=== PATIENT | female | born 1970 | race Caucasian/White ===

== ENCOUNTER 2017-11-24 13:14 | Emergency (ER) | payer MEDICAID, SELFPAY ==
[2017-11-24 13:16] VITALS: BP 158/92; PULSE 78; RESP 15; TEMP 35.9; O2SAT 98; BMI 30.4
--- NOTE | 2017-11-24 13:26 | VDLE_ITS ---
Reason For Study: LEG SWELLING RIGHT LEFT CFV is compressible, spontaneous, phasic, GSV is normal. competent and demonstrates normal CFV is compressible, spontaneous, phasic, augmentation. competent, and demonstrates normal Procedure augmentation. Exam performed in department. FV is compressible, spontaneous, phasic, A preliminary report was called and/or faxed competent and demonstrates normal to Dr. Avalos. augmentation. POP V is compressible, spontaneous, phasic, competent and demonstrates normal augmentation. T/P Trunk is compressible. PTV is compressible. LT PerV is compressible. Interpretation Summary There is no evidence of left lower extremity deep vein thrombosis. Left greater saphenous vein appears patent and compressible segmentally. Normal flow patterns right common femoral vein. Ordering Physician: Louie Avalos Performed By: Kassandra Moore RVT
--- NOTE | 2017-11-24 13:50 | ED.VISSUMM ---
- ER Visit Summary Date of Service: 11/24/17 Chief Complaint: Left calf pain History of Present Illness: The patient is a 47 F with history of factor V Leiden deficiency, prior pulmonary embolus and DVT [facility] because of pain posterior left calf. She recently moved from [place], 2 weeks ago. She denies any cardiac or respiratory symptoms. She is presently on no anticoagulant. She denies fever, chills night sweats. She denies nausea or vomiting. There is no history of trauma. Physical Examination: Vital signs are remarkable elevated blood pressure 158/92. She is heavyset with a BMI of 30.4. HEENT exam is unremarkable. Heart is regular without murmur, gallop or rub. S1 and S2 are normal. Lungs are clear to auscultation with good movement of air bilaterally. Abdomen soft nontender. Examination of the left lower extremity reveals swelling of the calf compared to the right side with pain the patient over the distribution deep venous system and slight distention of leg veins. There is no erythema, warmth, induration or fluctuance. There is no lymphangitis. There is no popliteal or inguinal lymphadenopathy. Test Results: Venous duplex study of the left lower extremity and proximal right lower extremity reveals no evidence of DVT or evidence of chronic DVT. Emergency Department Course and Treatment: Since patient's well score is greater than 3 a venous duplex study was ordered. Treatment Plan: Elevation and Tylenol or aspirin for discomfort Disposition: Discharged to home Impression: Atraumatic left calf pain unknown etiology History of PE and DVT History of factor V Leiden deficiency This note was generated with [employer] dictation software. It may contain incorrect words, spelling, and punctuation that were not noted in review of the chart prior to signing ED Disposition - Plan for ED Patient: Disposition: Home or Assisted Living Chief Complaint: Lower Extremity Injury Instructions: ED Acute Pain [facility] Referrals: Care Physician,No Primary [Primary Care Provider] - Additional Instructions: Contact your insurance carrier, [employer] for a referral to primary care physician.
--- NOTE | 2017-11-24 13:54 | ED.DCSUM_ITS ---
- ER Visit Summary Date of Service: 11/24/17 Chief Complaint: Left calf pain History of Present Illness: The patient is a 47 F with history of factor V Leiden deficiency, prior pulmonary embolus and DVT was [facility] because of pain posterior left calf. She recently moved from [place], 2 weeks ago. She denies any cardiac or respiratory symptoms. She is presently on no anticoagulant. She denies fever, chills night sweats. She denies nausea or vomiting. There is no history of trauma. Physical Examination: Vital signs are remarkable elevated blood pressure 158/ 92. She is heavyset with a BMI of 30.4. HEENT exam is unremarkable. Heart is regular without murmur, gallop or rub. S1 and S2 are normal. Lungs are clear to auscultation with good movement of air bilaterally. Abdomen soft nontender. Examination of the left lower extremity reveals swelling of the calf compared to the right side with pain the patient over the distribution deep venous system and slight distention of leg veins. There is no erythema, warmth, induration or fluctuance. There is no lymphangitis. There is no popliteal or inguinal lymphadenopathy. Test Results: Venous duplex study of the left lower extremity and proximal right lower extremity reveals no evidence of DVT or evidence of chronic DVT. Emergency Department Course and Treatment: Since patient's well score is greater than 3 a venous duplex study was ordered. Treatment Plan: Elevation and Tylenol or aspirin for discomfort Disposition: Discharged to home Impression: Atraumatic left calf pain unknown etiology History of PE and DVT History of factor V Leiden deficiency This note was generated with [employer] dictation software. It may contain incorrect words, spelling, and punctuation that were not noted in review of the chart prior to signing ED Disposition - Plan for ED Patient: Disposition: Home or Assisted Living Chief Complaint: Lower Extremity Injury Instructions: ED Acute Pain [facility] Referrals: Care Physician,No Primary [Primary Care Provider] - Additional Instructions: Contact your insurance carrier, [employer] for a referral to primary care physician.
== END 2017-11-24 14:17 | disposition home or self-care (01) ==
LOC: ED 14:09
PROVIDERS: Emergency Provider Emergency Medicine
DX: M79.662 Pain in left lower leg (principal); D68.2 Hereditary deficiency of other clotting factors; Z86.718 Personal history of other venous thrombosis and embolism; Z86.711 Personal history of pulmonary embolism; E66.9 Obesity, unspecified; Z68.30 Body mass index [BMI] 30.0-30.9, adult; Z86.73 Personal history of transient ischemic attack (TIA), and cerebral infarction without residual deficits; Z85.038 Personal history of other malignant neoplasm of large intestine; Z72.0 Tobacco use; Z79.82 Long term (current) use of aspirin
CPT/HCPCS: 93971; 99282

== ENCOUNTER → 2017-12-30 10:01 | Outpatient (CLI) | payer MEDICAID, SELFPAY ==
[2017-12-30 12:21] LABS: International Normalized Ratio 0.9; Prothrombin Time (Protime)PT. 12.4 SECONDS (11.7-14.9)
[2017-12-30 12:22] LABS: Partial Thromboplast Time 28.2 Seconds (24.1-36.2)
[2017-12-30 12:40] LABS: Absolute Lymphocyte Count 1.48 X10^3/ul (0.83-4.51); Absolute Neutrophil Count 5.2 X10^3/uL (2.0-7.7); Basophil# 0.02 X10^3/uL; Basophil% 0.3 % (0-1); Eosinophil# 0.12 X10^3/uL; Eosinophils% 1.7 % (0-5); Hematocrit 43.5 % (37-47); Hemoglobin 14.5 g/dl (12.0-15.0); Lymphocyte # 1.48 X10^3/ul (4.0); Lymphocyte % 20.4 % (19-41); Mean Corp Hgb Conc 33.3 g/gl (32-36); Mean Corpuscular Hgb 29.1 pg (27.0-32.0); Mean Corpuscular Volume 87.3 fL (81-99); Mean Platelet Vol. 11.2 fl (6.2-12.0); Monocyte# 0.47 X10^3/uL; Monocyte% 6.5 % (0-10); Neutrophil # 5.17 X10^3/uL (2.7-7.7); Platelet Count 218 K/mm3 (150-450); RBC Distribution Width CV 13.7 % (11.6-14.6); RBC Distribution Width SD 43.6 fl (35.1-43.9); Red Blood Count 4.98 M/mm3 (4.2-5.4); White Blood Count 7.3 K/mm3 (4.4-11.0)
[2017-12-30 12:41] LABS: POSITIVE COUNT NO; POSITIVE DIFFERENTIAL NO; POSITIVE MORPHOLOGY NO
[2017-12-30 12:43] LABS: ALB/GLOB Ratio 1.1 RATIO (0.9-2.4); AST(SGOT) 17 U/L (15-37); Alanine Aminotransfer ALT/SGPT 26 U/L (13-56); Albumin, Serum 3.8 g/dL (3.2-5.0); Alkaline Phosphatase 105 U/L (45-117); Anion Gap 9 (5-15); BUN 13 mg/dL (7-18); BUN/Creat Ratio 16.2 RATIO (10-20); Chloride 112 mmol/L (98-107); EST Glomerular Filtration Rate 81 mL/min (>60); Est Glom Filt Rate - Afr Amer 97 mL/min (>60); Globulin 3.5 g/dL (2.2-4.2); Glucose 91 mg/dL (74-106); Potassium 3.8 mmol/L (3.5-5.1); Protein, Total 7.3 g/dL (6.4-8.2); Sodium Level 143 mmol/L (136-145); Thyroid Stim Hormone (TSH) 1.22 uIU/mL (0.358-3.74)
[2018-01-01 11:46] LABS: Carcinoembryonic Antigen 1.1 ng/mL (0.0-4.7)
== END ==
PROVIDERS: Family Provider Family Medicine; PCP Family Medicine; Visit Provider Family Medicine
DX: C18.9 Malignant neoplasm of colon, unspecified (principal); R00.2 Palpitations; D68.51 Activated protein C resistance
CPT/HCPCS: 36415; 80053; 82378; 84443; 85025; 85610; 85730

== ENCOUNTER → 2018-01-20 13:45 | Outpatient (CLI) | payer MEDICAID, SELFPAY ==
--- NOTE | 2018-01-20 13:47 | CT_ITS ---
STUDY: CT ABDOMEN AND PELVIS WITHOUT CONTRAST REASON FOR EXAM: Female, 47 years old. Right mid abdominal pain. Hematuria. History of prior colectomy secondary to stage IV colon cancer. RADIATION DOSAGE (If Supplied By Facility): CTDIvol = ( 19.10 ) mGy, DLP = ( 968.91 ) mGycm TECHNIQUE: Transaxial images were obtained from the dome of the diaphragm to the symphysis pubis without oral contrast, and without intravenous contrast. Sagittal and coronal images were reconstructed. Individualized dose optimization techniques were used for this CT. COMPARISON: None. FINDINGS: The visualized lung bases are unremarkable. The visualized portions of the heart are within normal limits. Normal liver. The patient is status post cholecystectomy. Normal spleen. Normal pancreas. Normal bilateral adrenal glands. Normal right kidney. Normal left kidney. There is a small hiatal hernia. Normal small intestine. Normal colon. The appendix is visualized and appears normal. Normal abdominal aorta. Normal inferior vena cava. Normal retroperitoneum. Normal urinary bladder. There is absence of the uterus consistent with a prior hysterectomy. Normal abdominal wall. There are mild degenerative changes of the visualized lumbar spine. CT/Abdomen/Pelvis without Cont IMPRESSION: No acute abnormality is seen. Electronically Signed: Delmer Miller MD at 15:43 EDT Tel [phone], Service support ,
== END ==
PROVIDERS: Family Provider Family Medicine; PCP Family Medicine; Visit Provider Family Medicine
DX: R31.9 Hematuria, unspecified (principal)
CPT/HCPCS: 74176

== ENCOUNTER → 2018-08-14 13:42 | Outpatient (CLI) | payer MEDICAID, SELFPAY ==
[2018-08-14 16:05] LABS: Absolute Lymphocyte Count 1.72 X10^3/ul (0.83-4.51); Absolute Neutrophil Count 6.8 X10^3/uL (2.0-7.7); Basophil# 0.03 X10^3/uL; Basophil% 0.3 % (0-1); Eosinophil# 0.11 X10^3/uL; Eosinophils% 1.2 % (0-5); Hematocrit 43.5 % (37-47); Hemoglobin 14.6 g/dl (12.0-15.0); Lymphocyte # 1.72 X10^3/ul (4.0); Lymphocyte % 18.7 % (19-41); Mean Corp Hgb Conc 33.6 g/gl (32-36); Mean Corpuscular Hgb 29.6 pg (27.0-32.0); Mean Corpuscular Volume 88.1 fL (81-99); Mean Platelet Vol. 10.8 fl (6.2-12.0); Monocyte# 0.57 X10^3/uL; Monocyte% 6.2 % (0-10); Neutrophil # 6.75 X10^3/uL (2.7-7.7); Neutrophil % 73.5 % (47-70); Platelet Count 237 K/mm3 (150-450); RBC Distribution Width CV 13.4 % (11.6-14.6); Red Blood Count 4.94 M/mm3 (4.2-5.4); White Blood Count 9.2 K/mm3 (4.4-11.0)
[2018-08-14 16:08] LABS: POSITIVE COUNT NO; POSITIVE DIFFERENTIAL NO; POSITIVE MORPHOLOGY NO
[2018-08-14 16:15] LABS: ALB/GLOB Ratio 1.1 RATIO (0.9-2.4); AST(SGOT) 22 U/L (15-37); Alanine Aminotransfer ALT/SGPT 26 U/L (13-56); Albumin, Serum 3.7 g/dL (3.2-5.0); Alkaline Phosphatase 109 U/L (45-117); Anion Gap 10 (5-15); BUN 15 mg/dL (7-18); BUN/Creat Ratio 17.5 RATIO (10-20); CRP 4.11 mg/L (0.0-3.0); Calcium,Total 8.6 mg/dL (8.5-10.1); Chloride 108 mmol/L (98-107); Creatinine, Serum 0.86 mg/dL (0.55-1.02); EST Glomerular Filtration Rate 75 mL/min (>60); Est Glom Filt Rate - Afr Amer 90 mL/min (>60); Globulin 3.4 g/dL (2.2-4.2); Glucose 95 mg/dL (74-106); Potassium 3.7 mmol/L (3.5-5.1); Protein, Total 7.1 g/dL (6.4-8.2); Sodium Level 143 mmol/L (136-145)
[2018-08-14 16:21] LABS: Erythrocyte Sedimentation Rate 5 mm/hr (0-30)
[2018-08-16 11:57] LABS: Carcinoembryonic Antigen 0.9 ng/mL (0.0-4.7)
== END ==
PROVIDERS: Family Provider Family Medicine; PCP Family Medicine; Referring Provider Family Medicine; Visit Provider Family Medicine
DX: R51 Headache (principal); R50.9 Fever, unspecified; R20.9 Unspecified disturbances of skin sensation; R07.89 Other chest pain; Z85.038 Personal history of other malignant neoplasm of large intestine
CPT/HCPCS: 36415; 80053; 82378; 85025; 85652; 86140

== ENCOUNTER → 2018-08-31 12:58 | Outpatient (CLI) | payer MEDICAID, SELFPAY ==
--- NOTE | 2018-08-31 13:03 | MRI_ITS ---
STUDY: MRI BRAIN WITH AND WITHOUT CONTRAST REASON FOR EXAM: Female, 48 years old. Headaches and colon cancer TECHNIQUE: Standardized multiplanar fat and water weighted pulse sequences were obtained. 10 ml of Gadavist contrast material was administered intravenously for the contrast portion of the examination. COMPARISON: None. FINDINGS: Normal size of the ventricles and extra-axial spaces for the patient's age. Normal white matter tracts of the supratentorial brain. Normal bilateral basal ganglia. Normal thalami. There is no extra-axial fluid accumulation. Normal flow voids within the major intracranial circulation suggesting patency by spin echo criteria. Normal venous enhancement. There is no enhancing intra-axial or extra-axial abnormality. Normal sella turcica, pituitary gland, infundibular stalk, optic chiasm and hypothalamus. Normal tectal plate and pineal gland. Normal midbrain, maki and medulla. Normal cerebellum. Normal basal cisterns. Normal bilateral temporal bones. Normal bilateral internal auditory canals. No demonstrated orbital abnormality, within the constraints of a routine brain study. Normal visualized paranasal sinuses. Normal calvarium and skull base. Normal visualized soft tissue structures. Normal visualized upper cervical spine. Postcontrast images demonstrate pachymeningeal enhancement which was not noted previously. There is NO abnormal leptomeningeal enhancement. There is NO abnormal intra-axial enhancement. Findings could be due to prior lumbar puncture or intracranial hypotension. Possibility of metastasis considered unlikely but not excluded. Clinical correlation suggested. If indicated, lumbar puncture may be helpful. There is fluid in the RIGHT mastoid air cells suggesting mastoiditis. There are incidental enlarged enhancing LEFT cervical lymph nodes noted on the coronal images. MRI/Brain W/WO Contrast IMPRESSION: There is NO hemorrhage, edema, mass, mass effect or midline shift. There is NO evidence of recent infarct. Postcontrast images demonstrate pachymeningeal enhancement which was not noted previously. There is NO abnormal leptomeningeal enhancement. There is NO abnormal intra-axial enhancement. Findings could be due to prior lumbar puncture or intracranial hypotension. Possibility of metastasis considered unlikely but not excluded. Clinical correlation suggested. If indicated, lumbar puncture may be helpful. There is fluid in the RIGHT mastoid air cells suggesting mastoiditis. There are incidental enlarged enhancing LEFT cervical lymph nodes noted on the coronal images. Electronically Signed: Bola aHnnon MD at 7:48 EST , Service support ,
== END ==
PROVIDERS: Family Provider Family Medicine; PCP Family Medicine; Referring Provider Family Medicine; Visit Provider Family Medicine
DX: R51 Headache (principal); R20.9 Unspecified disturbances of skin sensation; Z85.038 Personal history of other malignant neoplasm of large intestine
CPT/HCPCS: 70553; A9585

== ENCOUNTER → 2018-09-19 08:50 | Outpatient (CLI) | payer MEDICAID, SELFPAY ==
--- NOTE | 2018-09-19 08:53 | BI_ITS ---
MAMMOGRAPHY - BILATERAL SCREENING REASON FOR EXAM: Female, 48 years old. Routine annual screening examination. PERTINENT HISTORY: Grandmother with breast cancer. History of prior left breast biopsy. Patient has a past history of colon carcinoma. TECHNIQUE: Digital bilateral breast ascencion (3D mammographic acquisition) in the CC and MLO projections. 2-D mediolateral oblique (MLO) and craniocaudad (CC) views of both breasts were obtained. CAD: Full Field Digital Mammography with Computer Added Detection was performed. COMPARISON: Comparison is made with prior examination dated February 19, 2013 and August 24, 2012. FINDINGS: Breast Composition: The breasts are heterogeneously dense, which may obscure small masses. There are no dominant masses or suspicious calcifications. A tissue clip marker is seen in the slightly superior retroareolar region of the left breast. No other significant abnormalities are identified. There has been no significant change since the prior study. BI/SCREENING MAMM (CAD), BILAT IMPRESSION: Stable bilateral screening mammogram. Yearly follow-up mammogram recommended. (A) ASSESSMENT CATEGORY: BIRADS Category 1: Negative. A letter regarding these results will be sent to the patient by the facility within 30 days. Approximately 10% of breast cancers are not detected by mammography. A normal mammogram should not delay biopsy of a clinically suspicious abnormality. [id number] Electronically Signed: Delmer Miller MD at 9:09 EST Tel [phone], Service support ,
== END ==
PROVIDERS: Family Provider Family Medicine; PCP Family Medicine; Visit Provider Family Medicine
DX: Z12.31 Encounter for screening mammogram for malignant neoplasm of breast (principal)
CPT/HCPCS: 77063; 77067

== ENCOUNTER → 2019-01-09 | Outpatient (CLI) | payer MEDICAID, SELFPAY ==
--- NOTE | 2019-01-09 15:38 | MRI_ITS ---
STUDY: MRI BRAIN WITH AND WITHOUT CONTRAST REASON FOR EXAM: Female, 48 years old. Leptomeningeal enhancement, headache for 7 months TECHNIQUE: Standardized multiplanar fat and water weighted pulse sequences were obtained. 20 IV Dotarem was administered for the contrast portion of the examination. COMPARISON: 08/31/2018 FINDINGS: Normal size of the ventricles and extra-axial spaces for the patient's age. Normal white matter tracts of the supratentorial brain. Bilateral frontal lobe encephalomalacia. Normal bilateral basal ganglia. Normal thalami. There is no extra-axial fluid accumulation. Normal flow voids within the major intracranial circulation suggesting patency by spin echo criteria. Normal venous enhancement. There is no enhancing intra-axial or extra-axial abnormality. Normal sella turcica, pituitary gland, infundibular stalk, optic chiasm and hypothalamus. Normal tectal plate and pineal gland. Normal midbrain, maki and medulla. Normal cerebellum. Normal basal cisterns. Normal bilateral temporal bones. Normal bilateral internal auditory canals. No demonstrated orbital abnormality, within the constraints of a routine brain study. Normal visualized paranasal sinuses. Right mastoid sinus disease. Normal visualized soft tissue structures. Normal visualized upper cervical spine. MRI/Brain W/WO Contrast IMPRESSION: No abnormal meningeal enhancement is present at this time. No evidence of acute infarct or hemorrhage. Bifrontal encephalomalacia. Electronically Signed: Lei Ayala MD at 18:24 EDT Tel , Service support ,
== END | disposition home or self-care (01) ==
LOC: MRI 15:33
PROVIDERS: Family Provider Family Medicine; PCP Family Medicine; Referring Provider Psychiatry & Neurology Neurology; Visit Provider Psychiatry & Neurology Neurology
DX: G96.19 Other disorders of meninges, not elsewhere classified (principal)
CPT/HCPCS: 70553; A9575

== ENCOUNTER → 2019-04-05 | Outpatient (CLI) | payer MEDICAID, SELFPAY ==
--- NOTE | 2019-04-05 09:47 | VDLE_ITS ---
Reason For Study: pain, hx DVT RIGHT LEFT GSV is normal. CFV is compressible, spontaneous, phasic, CFV is compressible, spontaneous, phasic, competent, and demonstrates normal competent and demonstrates normal augmentation. augmentation. FV is compressible, spontaneous, phasic, competent and demonstrates normal augmentation. POP V is compressible, spontaneous, phasic, competent and demonstrates normal augmentation. T/P Trunk is compressible. PTV is compressible. RT PerV is compressible. Procedure Exam performed in department. The exam was diagnostic. A preliminary report was called and/or faxed to Dr. Pizano. Interpretation Summary Deep veins of the right lower extremity are patent and compressible segmentally. There is no evidence of right lower extremity deep vein thrombosis. Valvular competence appears intact within the proximal deep venous system on the right . The right greater saphenous vein appears patent and compressible segmentally. Ordering Physician: Jerica Fisher Performed By: Evan Bernal RVT
== END | disposition home or self-care (01) ==
LOC: CVS 09:46
PROVIDERS: Family Provider Family Medicine; PCP Family Medicine; Referring Provider Family Medicine; Visit Provider Family Medicine
DX: M79.661 Pain in right lower leg (principal); I82.409 Acute embolism and thrombosis of unspecified deep veins of unspecified lower extremity; F17.210 Nicotine dependence, cigarettes, uncomplicated
CPT/HCPCS: 93971

== ENCOUNTER 2019-08-03 09:30 | Outpatient (RCR) | payer MEDICAID, SELFPAY ==
--- NOTE | 2019-06-25 14:38 | HP.PTEVAL_ITS ---
Patient's Visit Information JADEN ARMSTRONG is a 49 year old F referred to Physical Therapy by Zechariah Ozuna DPM with a diagnosis of R Plantar Fascitis. Date of Evaluation: 06/25/19 Physical Therapist: Malka Vaz DPT - Visit Plan Frequency: 2x /Week Duration: 4 Weeks Plan: Focus on improving WB'ing tolerance, ankle ROM, functional LE strength, balance, and decreasing pain. Ultrasound as needed, progress as tolerated. 06/25/19 HEP Prescribed: Ankle Pumps, Ankle Circles, Ankle ABC's, Gastroc/Soleus Stretch, Towel Scrunches. - Subjective Findings: R foot pain at heel, feels like a board with nails in it, shocks in the leg out of nowhere. Pain hs begun to feel tight and radiates to big toe. Pain started 2 months ago at work, just walking around, increased swelling, had to remove shoe. Saw week later, x-rays - bone spurs in R heel. Was given boot - instructed to wear boot for 2 months - non-compliant with boot, told she was not at last appointment 06/04/19. Pt. reports was fine with her not earing boot as long as she rests & uses ice frequently. Does wear boot in the house or when walking long distances. Describes pain as being stabbing, shooting, and an ache. Increased swilling longer she is on her feet. Radiating/shooting pain up to knee & down to toes. N/T present d/t neuropathy. Does disrupt sleep. Worst: 10+/10 Aggravating Factors: stairs, walking (long distances/uneven), Wb'ing, driving Best: 4/10 Relieving Factors: Rest, elevation, ice self-massaging. 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 2 story home 12 steps. Typical Activites: walking, hiking, rides stationary bike, [place] dance. 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 Stairs: B toe-out, reciprocal, slow & 1 HR use, pain t/o. Gait: B Toe-Out, Antalgic, increase stance time on R, pes planus. HR/TR: WFL but painful - B UE assist. SLS: L - 10 5 seconds before LOB, R - unable d/to pain, does weight shift. ROM: Ankle R Df 5 degrees, PF 25 degrees, Eversion 22 degrees, Inversion 16 degrees. Strength: ANkle DF 4+/5, PF 4-/5 Eversion/Inversion 3+/5 Knee ext 5/5 flex 4/5 Hip 4+/5 Core: fair minus. Flexibility: Gastroc: severe Soleus: severe Hamstring: mod. Palpation: TTP at heel & distal achilles tendon, navicular, t/o top of foot - Goals Goal 1:: Pt. will be I w/ HEP & progression Goal Time Frame: 4-6 Weeks Goal 2:: Pt. will demo 5/5 strength in R ankle Goal Time Frame: 4-6 Weeks Goal 3:: Pt. will demo 35 degrees of plantarflexion Goal Time Frame: 4-6 Weeks Goal 4:: Pt. will demo R SLS for 15 seconds w/ no UE assist Goal Time Frame: 4-6 Weeks Goal 5:: Amb. >300 ft. w/ normalized gait pattern Goal Time Frame: 4-6 Weeks - Rehabilitation Potential Physical Therapy Diagnosis: Presents w/ hypomobility, antalgic gait, impaired ROM/strength, and pain which leads to poor tolerance of work-related acitivities. Rehabilitation Potential: Good - Anticipated Interventions Patient/Client Instruction: Educate patient on: Condition For the Purpose of:: To decrease pain Therapeutic Exercise to Include: Strength training, Endurance training, Balance training, Postural training, Flexibilty training, Gait and locomotor training, Dynamic Lumbar Stabilization For the Purpose of:: To improve muscle performance and motor function TENS: Yes Cryotherapy (ice pack, ice massage): Yes Thermo therapy (hot pack): Yes Ultrasound (thermal/non thermal): Yes For the Purpose of:: To decrease pain Thank you for the opportunity to evaluate your patient. For Medicare and Medicare HMO plans, please review the plan of care and approve it. It will need to be FAXED BACK to us at [phone] for Medicare purposes. For Medicare only, by signing this I certify the plan of care. Please let me know if there are questions or concerns regarding this plan of care. Physician Signature: Date:
--- NOTE | 2019-08-03 09:51 | HP.PTDCSUM ---
HP - PT D/C Summary It has been my pleasure to treat JADEN ARMSTRONG under orders from Zechariah Ozuna DPM, for the diagnosis of R Plantar Fascitis for a total of 7 visit(s). Discharge Date: Please see the following information for a summary of their discharge status. - Subjective Subjective: Patient reports thats he is not much better- the pain is moving a little bit but its now on the lateral aspect of the ankle and down in the heel. Still has shooting pains. Goes back to the MD when she finishes therapy. Today 01/19 it never goes below that. Does put the boot on when she needs it. - Pain R Heel Pain Intensity (Out of 10): 4 L HC Pain Intensity (Out of 10): 0 - Objective Objective/Function: Posture: RS, FH - corrected w/ v.c not maintained. Stairs: B toe-out, reciprocal, slow & 1 HR use, pain t/o. Gait: B Toe-Out, Antalgic, increase stance time on R, pes planus. HR/TR: WFL but painful - B UE assist. SLS: L - 10 5 seconds before LOB, R - unable d/to pain, does weight shift. ROM: Ankle R Df 5 degrees, PF 25 degrees, Eversion 22 degrees, Inversion 16 degrees. Strength: ANkle DF 4+/5, PF 4-/5 Eversion/Inversion 3+/5 Knee ext 5/5 flex 4/5 Hip 4+/5 Core: fair minus. Flexibility: Gastroc: severe Soleus: severe Hamstring: mod. Palpation: TTP at heel & distal achilles tendon, navicular, t/o top of foot. No significant changes from IE - Goals Goal 1:: Pt. will be I w/ HEP & progression Goal Progress: Not Progressing Goal 2:: Pt. will demo 5/5 strength in R ankle Goal Progress: Not Progressing Goal 3:: Pt. will demo 35 degrees of plantarflexion Goal Progress: Not Progressing Goal 4:: Pt. will demo R SLS for 15 seconds w/ no UE assist Goal Progress: Not Progressing Goal 5:: Amb. >300 ft. w/ normalized gait pattern Goal Progress: Not Progressing - Plan Plan: Return to MD for further evaluation - D/C Information If there are questions or concerns regarding this patient's physical therapy, please feel free to call me at [phone]. Thank you for the referral of this patient. Sincerely, VERNELL SahuT
== END 2019-08-03 19:00 | disposition home or self-care (01) ==
LOC: PT 09:30
PROVIDERS: Family Provider Family Medicine; PCP Family Medicine; Referring Provider Podiatrist; Visit Provider Podiatrist
DX: M76.821 Posterior tibial tendinitis, right leg (principal); G57.51 Tarsal tunnel syndrome, right lower limb; M72.2 Plantar fascial fibromatosis; M77.31 Calcaneal spur, right foot; M21.6X9 Other acquired deformities of unspecified foot; M79.671 Pain in right foot
CPT/HCPCS: 97035; 97110; 97161; 97164

== ENCOUNTER → 2019-09-19 09:22 | Outpatient (CLI) | payer MEDICAID, SELFPAY ==
--- NOTE | 2019-09-19 09:30 | MRI_ITS ---
STUDY: MRI RIGHT ANKLE WITHOUT CONTRAST REASON FOR EXAM: Female, 49 years old. Posterior tibial tendinitis, tarsal tunnel syndrome right ankle, rt heel pain, pain entire ankle. TECHNIQUE: Standardized fat and water weighted pulse sequences were obtained in all 3 orthogonal planes. COMPARISON: None. FINDINGS: Mild plantar fascial thickening with acute marrow edema, soft tissue swelling and small plantar spur (sagittal image 12 series 9). No plantar fascial tear. Normal Achilles tendon. Normal muscles of the midfoot/hindfoot. Trace tibiotalar assess subtalar joint effusion. Normal posterior tibialis tendon. Normal flexor digitorum longus tendon. Normal flexor hallucis longus tendon. Normal peroneus longus and brevis tendons. Normal tibialis anterior tendon. Normal extensor hallucis longus tendon. Normal extensor digitorum longus tendons. Normal distal tibiofibular syndesmotic ligamentous complex. Normal lateral ligamentous complex. Normal subtalar ligaments and sinus tarsi. Normal deltoid ligamentous complexes. Normal plantar calcaneonavicular (spring) ligament. Normal tibiotalar articular cartilage. Normal talar dome. Normal subtalar articular cartilage. Normal talonavicular articulation. Normal calcaneocuboid articulation. Normal navicular-cuneiform articulations. MRI/Lower Ext Joint Only (Routine) IMPRESSION: Mild acute plantar fasciitis with small spur Trace tibiotalar/subtalar joint effusion Electronically Signed: Ravindra Garcia DO at 11:24 EST Tel , Service support ,
== END ==
PROVIDERS: Family Provider Family Medicine; PCP Family Medicine; Referring Provider Podiatrist; Visit Provider Podiatrist
DX: M76.821 Posterior tibial tendinitis, right leg (principal); M72.2 Plantar fascial fibromatosis; M79.671 Pain in right foot; M77.31 Calcaneal spur, right foot
CPT/HCPCS: 73721

== ENCOUNTER → 2019-11-29 | Outpatient (CLI) | payer MEDICAID, SELFPAY ==
[2019-11-29 12:35] LABS: Absolute Lymphocyte Count 1.84 X10^3/uL (0.83-4.51); Absolute Neutrophil Count 7.5 X10^3/uL (2.0-7.7); Basophil# 0.06 X10^3/uL; Basophil% 0.6 % (0-1); Eosinophil# 0.09 X10^3/uL; Eosinophils% 0.9 % (0-5); Hematocrit 45.2 % (37-47); Hemoglobin 14.9 g/dL (12.0-15.0); Lymphocyte # 1.84 X10^3/ul (4.0); Lymphocyte % 18.2 % (19-41); Mean Corpuscular Hgb 28.9 pg (27.0-32.0); Mean Corpuscular Volume 87.8 fL (81-99); Monocyte# 0.57 X10^3/uL; Monocyte% 5.6 % (0-10); NRBC Flagged by Analyzer 0 % (0-5); Neutrophil # 7.51 X10^3/uL (2.7-7.7); Neutrophil % 74.4 % (47-70); Platelet Count 239 K/mm3 (150-450); RBC Distribution Width CV 13.3 % (11.6-14.6); Red Blood Count 5.15 M/mm3 (4.2-5.4); White Blood Count 10.1 K/mm3 (4.4-11.0)
[2019-11-29 12:37] LABS: ALB/GLOB Ratio 1.2 RATIO (0.9-2.4); AST(SGOT) 22 U/L (15-37); Alanine Aminotransfer ALT/SGPT 30 U/L (13-56); Albumin, Serum 4.2 g/dL (3.2-5.0); Alkaline Phosphatase 132 U/L (45-117); Anion Gap 6 (5-15); BUN 17 mg/dL (7-18); BUN/Creat Ratio 20.6 RATIO (10-20); Calcium,Total 9.4 mg/dL (8.5-10.1); Chloride 108 mmol/L (98-107); Cholesterol 213 mg/dL (200); Creatinine, Serum 0.83 mg/dL (0.55-1.02); EST Glomerular Filtration Rate 77 mL/min (>60); Est Glom Filt Rate - Afr Amer 93 mL/min (>60); Globulin 3.4 g/dL (2.2-4.2); Glucose 90 mg/dL (74-106); High Density Lipoprotein 47 mg/dL; Potassium 3.8 mmol/L (3.5-5.1); Protein, Total 7.6 g/dL (6.4-8.2); Sodium Level 138 mmol/L (136-145); Triglycerides 295 mg/dL; Very Low Density Lipoprotein 59 mg/dL (5-40)
[2019-11-29 13:06] LABS: Rubella IgG 112.7 IU/mL
[2019-11-30 21:35] LABS: Carcinoembryonic Antigen 1.2 ng/mL (0.0-4.7); Mumps Antibody,IgG < 9.0 AU/mL (Immune >10.9); Rubeola IgG Ab > 300.0 AU/mL (Immune >16.4)
== END | disposition home or self-care (01) ==
LOC: BFHLAB 10:12
PROVIDERS: PCP Family Medicine; Visit Provider Family Medicine
DX: Z00.00 Encounter for general adult medical examination without abnormal findings (principal); D68.51 Activated protein C resistance; C18.9 Malignant neoplasm of colon, unspecified; Z83.3 Family history of diabetes mellitus
CPT/HCPCS: 36415; 80053; 80061; 82378; 85025; 86735; 86762; 86765

== ENCOUNTER → 2019-12-18 | Outpatient (CLI) | payer MEDICAID, SELFPAY ==
--- NOTE | 2019-12-18 10:24 | BI_ITS ---
MAMMOGRAPHY - BILATERAL SCREENING REASON FOR EXAM: Female, 49 years old. Routine annual screening examination. PERTINENT HISTORY: Grandmother with breast cancer. Remote left breast biopsy. TECHNIQUE: Digital bilateral breast alize (3D mammographic acquisition) in the CC and MLO projections. 2-D mediolateral oblique (MLO) and craniocaudad (CC) views of both breasts were obtained. CAD: Full Field Digital Mammography with Computer Added Detection was performed. COMPARISON: Comparison is made with prior examination dated September 19, 2018 FINDINGS: Breast Composition: The breasts are heterogeneously dense, which may obscure small masses. There are no dominant masses or suspicious calcifications. A tissue clip marker is once again seen in the slightly superior retroareolar region of the left breast. No other significant abnormalities are identified. There has been no significant change since the prior study. BI/SCREEN MAMM (CAD) W/ALIZE BILAT IMPRESSION: Stable bilateral screening mammogram. Yearly follow-up mammogram recommended. (A) ASSESSMENT CATEGORY: BIRADS Category 2: Benign. A letter regarding these results will be sent to the patient by the facility within 30 days. Approximately 10% of breast cancers are not detected by mammography. A normal mammogram should not delay biopsy of a clinically suspicious abnormality. [id number] Electronically Signed: Delmer Miller, at 12:46 EDT , Service support ,
--- NOTE | 2019-12-18 10:39 | BD_ITS ---
STUDY: DUAL ENERGY X-RAY ABSORPTIOMETRY / DXA REASON FOR EXAM: Female, 49 years old. CATERING AND EVENTS MANAGER-SURGICAL EARLY AT 35 YRS OLD -- SMOKER -- USES INHALER NEEDED -- HX OF FACTOR V LEIDEN, AND COLON CANCER -- DOES LITTLE EXERCISE -- FAMILY HX OF OSTEO- MOTHER -- NO DARLEEN TECHNIQUE: Bone Mineral Density (BMD) measurements of lumbar spine and bilateral hips were obtained. COMPARISON: None. FINDINGS: Lumbar Spine (L1-L4): g/cm2 (1.207) / T-score (0.2) / Z-score (0.8) Findings are suggestive of normal bone density with a low fracture risk. Left Femur Total: g/cm2 (0.980) / T-score (-0.2) / Z-score (0.3) Left Femoral Neck: g/cm2 (0.932) / T-score (-0.8) / Z-score (0.1) Right Femur Total: g/cm2 (0.961) / T-score (-0.4) / Z-score (0.2) Right Femoral Neck: g/cm2 (0.968) / T-score (-0.5) / Z-score (0.4) BD/Dexa Bone Density Study IMPRESSION: The patient is considered normal as outlined below according to World Gabriel Organization (WHO) criteria with a low fracture risk. Reference Information: The T-score is the number of standard deviations above or below the standard which is normal for young adults at their peak bone mineral density. The World Health Organization (WHO) interprets the T-scores as follows: Above -1 Normal bone density Between -1 and -2.5 Osteopenia Equal to / or below -2.5 Osteoporosis As a practical clinical guideline, osteopenia may be graded as follows: Mild -1 through -1.5 Moderate -1.6 through -2.0 Severe -2.1 through -2.4 The Z-score is the number of standard deviations above or below age-matched controls. A Z-score of less than -1.5 would be considered abnormal. References: 1. NIH Osteoporosis and Related Bone Diseases http://www.osteo.org 2. International Society for Clinical Densitometry http://www.iscd.org 3. National Osteoporosis Foundation http://www.nof.org Electronically Signed: Delmer Miller, at 13:14 EDT , Service support ,
== END | disposition home or self-care (01) ==
LOC: OPBD 10:23
PROVIDERS: PCP Family Medicine; Referring Provider Family Medicine; Visit Provider Family Medicine
DX: Z78.0 Asymptomatic menopausal state (principal); Z12.31 Encounter for screening mammogram for malignant neoplasm of breast; Z13.820 Encounter for screening for osteoporosis
CPT/HCPCS: 77063; 77067; 77080

== ENCOUNTER → 2020-12-02 11:53 | Outpatient (CLI) | payer MEDICAID, SELFPAY ==
[2020-12-02 15:12] LABS: Absolute Lymphocyte Count 1.55 X10^3/uL (0.83-4.51); Basophil# 0.04 X10^3/uL; Basophil% 0.6 % (0-1); Eosinophil# 0.09 X10^3/uL; Eosinophils% 1.3 % (0-5); Hematocrit 43.3 % (37-47); Hemoglobin 14.1 g/dL (12.0-15.0); Lymphocyte # 1.55 X10^3/ul (4.0); Lymphocyte % 21.6 % (19-41); Mean Corp Hgb Conc 32.6 g/dL (32-36); Mean Corpuscular Hgb 29.3 pg (27.0-32.0); Mean Corpuscular Volume 89.8 fL (81-99); Mean Platelet Vol. 10.8 fl (6.2-12.0); Monocyte# 0.53 X10^3/uL; Monocyte% 7.4 % (0-10); NRBC Flagged by Analyzer 0 % (0-5); Neutrophil # 4.96 X10^3/uL (2.7-7.7); Platelet Count 235 K/mm3 (150-450); RBC Distribution Width CV 13.1 % (11.6-14.6); RBC Distribution Width SD 43.4 fl (35.1-43.9); Red Blood Count 4.82 M/mm3 (4.2-5.4); White Blood Count 7.2 K/mm3 (4.4-11.0)
[2020-12-02 15:27] LABS: ALB/GLOB Ratio 1.3 RATIO (0.9-2.4); AST(SGOT) 22 U/L (15-37); Alanine Aminotransfer ALT/SGPT 33 U/L (13-56); Albumin, Serum 4.1 g/dL (3.2-5.0); Alkaline Phosphatase 102 U/L (45-117); Anion Gap 7 (5-15); BUN 17 mg/dL (7-18); BUN/Creat Ratio 22.8 RATIO (10-20); Calcium,Total 9.2 mg/dL (8.5-10.1); Chloride 109 mmol/L (98-107); Creatinine, Serum 0.74 mg/dL (0.55-1.02); EST Glomerular Filtration Rate 87 mL/min (>60); Est Glom Filt Rate - Afr Amer 105 mL/min (>60); Globulin 3.2 g/dL (2.2-4.2); Glucose 89 mg/dL (74-106); Potassium 3.8 mmol/L (3.5-5.1); Protein, Total 7.3 g/dL (6.4-8.2); Sodium Level 140 mmol/L (136-145)
== END ==
PROVIDERS: PCP Family Medicine; Referring Provider Family Medicine; Visit Provider Family Medicine
DX: Z01.818 Encounter for other preprocedural examination (principal)
CPT/HCPCS: 36415; 80053; 85025

== ENCOUNTER 2020-12-03 16:23 | Outpatient (RCR) | payer MEDICAID, SELFPAY ==
--- NOTE | 2020-12-03 19:13 | HP.PTEVAL_ITS ---
Patient's Visit Information JADEN ARMSTRONG is a 50 year old F referred to Physical Therapy by Dr. Taryn Watson DPM with a diagnosis of L plantar fascitis, extensor hallicus longus tendonitis, arthritis of 1 MTP. Date of Evaluation: 12/03/20 Physical Therapist: Reginald Mueller DPT - Visit Plan Frequency: 1-2x /Week Duration: 4 Weeks Plan: Pt. is very painful and stiff through her 1st MTPJ not allowing forefoot rocker moment with gait. This altered gait pattern appears to be causing a extensor foot tendonitis. She did have an MRI foot at her posterior foot and her previous plantar fascitis. I have a larger consern of her 1st MTPJ and possible MRI of this joint and extensor tendons might be warranted at this point in time. I would still suggest that she work on her 1st MTPJ ROM especially into extension allowing for correction of her gait pattern. - Subjective Pt. is here today for her initial evaluation with diagnosis of L plantar fascitis, extensor hallicus longus tendonitis, and arthritis of 1st MTPS. Pt. has been having pain for ~2 years, no mech of injury. She has been through PT before without success. She has tried cast boot, resting slints, CAM boot, ice/heat without success. Pt. has increased difficulty with walking, stairs, standing, and having pain at night that wakes her up. Pt. reports pain at 1st MET head and pain that starts on top on her foot that radiates up her ankle. She was typically very active including hiking, outdoor sports, and gym work outs, but is not able to tolerate any of these activities any more. Pt. met with her doctor who is concerned about further issues with her foot. She did have an MRI of the posterior aspect of her foot looking at her plantar fasciatis and heel spurs in September of 2019. She has not developed increased pain her 1st MET head and dorsal foot pain in conjuction with her plantar fascitis. Her physician was hopeful to have an MRI to rule out other associated pathologies as well. - Pain R 1st MTPJ Pain Intensity (Out of 10): 6 Pain Intensity Range: 4, 10 Dorsal aspect of foot along extensor tendon group Pain Intensity (Out of 10): 3 Pain Intensity Range: 2, 6 R longitudinal arch Pain Intensity (Out of 10): 3 Pain Intensity Range: 2, 8 - Objective POSTURE: Pt. has increased wt. shift to LLE in stance and tends to stand on heel with her R foot with foot everted. She reports she does this to avoid pain in her toe. PALPATION: Pt. has high levels of pain at 1st MTPJ and along hallicus longus tendon. She also has pain long medial longitudinal arch and origin of medial plantar fascia. Mild tenderness along Anterior tibialis tendon at anterior ankle. NEURO: Pt. has normal sensation throughout BLEs. Pt. has normal DTR of BLEs. ROM: Pt. has lack of ROM throughout L ankle. AROM: DF: 5deg, PF: 54deg, INV 8deg, EVR 6deg. PROM: DF 8deg pain, PF 55deg, INV 8deg, EVR 6deg. 1st MTPJ AROM: ext- 25deg, flexion 30deg. PROM: ext 35deg, flexion 40deg. Pt. has increased pain with end ranges of extension and flexion of MTPJ. GAIT: Pt. amb ulates with antalgic pattern. Pt. has very limited rocker moment of her forefoot on the R side, increased R foot EVR and avoid any extension of R 1st MTPJ during gait. In attempts to avoid that forefoot rocker moment she tends to keep very flat footed activating Anterior tibialis muscle throughout gait cycle. I belive this is adding to her tendonitis like symptoms of her hallux longus tendon and A nt tib. - Goals Goal 1:: LTG: Pt. to be I with HEP for ankle strengthening, ROM and 1st MTPJ ROM. Goal Time Frame: 2-4 Weeks Goal 2:: STG: Pt. to walk household distances with decreased pain to 2-3/10. Goal Time Frame: 2-4 Weeks Goal 3:: LTG: Pt. to have increased 1st MTPJ extension to 50-70deg allowing for improved forefoot rocker moment and improved gait mechanics. Goal Time Frame: 4-6 Weeks Goal 4:: LTG: pt. to tolerate stair negotation with 1 HR with reciprocal pattern with improved foot mechanics and 0-2/10 pain in her R foot. Goal Time Frame: 4-6 Weeks - Rehabilitation Potential Physical Therapy Diagnosis: Pt. has signs and symptoms consistent with L plantar fascitis, extensor hallicus longus tendonitis, and arthritis of 1st MTPS. Pt. has subsequent hypomombility, weakness, pain and difficulty walking. Rehabilitation Potential: Fair - Anticipated Interventions Patient/Client Instruction: Educate patient on: Condition, Plan of Care, Risk Factors, Benefits of Fitness Program For the Purpose of:: To facilitate caregiver knowledge, To improve self management, To prevent re-injury, To improve ability to perform tasks related to life management, To improve tolerance to ADL's Therapeutic Exercise to Include: Balance training, Body mechanics, Postural training, Flexibilty training, Gait and locomotor training, Passive ROM, Active ROM For the Purpose of:: To decrease pain, To decrease swelling/inflammation, To increase ROM, To improve nutrient delivery to tissue, To increase oxygenation perfusion, To improve muscle performance and motor function, To improve ability to perform ADL's Manual Therapy Techniques to Include: Mobilization, Soft tissue mobilization For the Purpose of:: To decrease pain, To decrease swelling/inflammation, To increase ROM Thank you for the opportunity to evaluate your patient. For Medicare and Medicare HMO plans, please review the plan of care and approve it. It will need to be FAXED BACK to us at [phone] for Medicare purposes. For Medicare only, by signing this I certify the plan of care. Please let me know if there are questions or concerns regarding this plan of care. Physician Signature: Date:
--- NOTE | 2021-02-17 14:03 | HP.PT.NRP ---
JADEN ARMSTRONG was seen in my office for initial evaluation on 12/03/20. The following Plan of Care was established for this patient: Initial Frequency: 1-2x /Week Initial Duration: 4 Weeks Patient/Client Instruction: Educate patient on: Condition, Plan of Care, Risk Factors, Benefits of Fitness Program For the Purpose of:: To facilitate caregiver knowledge, To improve self management, To prevent re-injury, To improve ability to perform tasks related to life management, To improve tolerance to ADL's Therapeutic Exercise to Include: Balance training, Body mechanics, Postural training, Flexibilty training, Gait and locomotor training, Passive ROM, Active ROM For the Purpose of:: To decrease pain, To decrease swelling/inflammation, To increase ROM, To improve nutrient delivery to tissue, To increase oxygenation perfusion, To improve muscle performance and motor function, To improve ability to perform ADL's Manual Therapy Techniques to Include: Mobilization, Soft tissue mobilization For the Purpose of:: To decrease pain, To decrease swelling/inflammation, To increase ROM This patient was last seen in our office 12/03/30. Pertinent comments regarding their Physical therapy will appear below: Pt. was seen for her initial evaluation with plantar fasciatis. Pt. has not been seen in PT since and will be DC from PT at this point in time. At this point I will be discontinuing this patient from physical therapy. I would be happy to see this patient again in the future if found appropriate by the physician. Thank you! VERNELL HeathT
== END 2020-12-03 19:00 | disposition home or self-care (01) ==
LOC: PT 16:23
PROVIDERS: PCP Family Medicine; Referring Provider Podiatrist Foot & Ankle Surgery; Visit Provider Podiatrist Foot & Ankle Surgery
DX: M77.9 Enthesopathy, unspecified (principal)
CPT/HCPCS: 97161

== ENCOUNTER → 2020-12-15 07:58 | Outpatient (CLI) | payer MEDICAID, SELFPAY ==
--- NOTE | 2020-12-15 08:09 | MRI_ITS ---
STUDY: MRI RIGHT MIDFOOT/FOREFOOT REASON FOR EXAM: Female, 50 years old. PLANTAR FASCITIS TECHNIQUE: Standardized fat and water weighted pulse sequences were obtained in all 3 orthogonal planes. COMPARISON: Correlation with ankle MRI dated 09/19/2019. FINDINGS: Normal visualized midfoot/forefoot plantar fascia. Normal flexor and extensor tendons. Normal Lisfranc ligament. No acute fracture, dislocation or osseous destruction. Normal talonavicular joint. Normal navicular cuneiform joints. Normal calcaneal cuboid joint. Normal tarsal metatarsal joints. Moderate first metatarsophalangeal joint arthrosis with reactive bone marrow edema/contusion. Small first metatarsophalangeal joint effusion. Normal second through fifth metatarsophalangeal joints. Visualized portions of the first through fifth digits intact. No acute muscle abnormality. No solid, cystic or lipomatous lesions. MRI/Lower Ext/No Jt/w/o IMPRESSION: Normal visualized midfoot/forefoot plantar fascial Moderate first MTP joint arthrosis with joint effusion Electronically Signed: Ravindra Garcia DO at 10:35 EDT Tel , Service support ,
== END ==
PROVIDERS: PCP Family Medicine; Visit Provider Podiatrist Foot & Ankle Surgery
DX: M19.071 Primary osteoarthritis, right ankle and foot (principal); M72.2 Plantar fascial fibromatosis; S46.111A Strain of muscle, fascia and tendon of long head of biceps, right arm, initial encounter
CPT/HCPCS: 73718

== ENCOUNTER 2020-12-18 12:55 | Day surgery (SDC) | payer MEDICAID, SELFPAY ==
[2020-12-18] VITALS (7 sets, daily range): BP systolic 124–141; BP diastolic 65–84; PULSE 62–76; RESP 14–16; TEMP 36.1–37.1; O2SAT 99–100; BMI 29.4
[2020-12-18] MEDS: Lactated Ringers 1,000 ML 100 ML IV ×2 (13:45→15:32)
--- NOTE | 2020-12-18 14:16 | PCM.OPRPT ---
Problem List (1) Hallux limitus of right foot Status: Chronic (2) Plantar fasciitis of right foot Status: Chronic (3) Post-op pain Status: Acute Report of Operation Date of Procedure: 12/18/20 Pre-Operative Diagnosis: hallux limitus right foot. plantar fasciitis right foot Post-Operative Diagnosis: same Surgery/Procedure Performed:: endoscopic plantar fasciiotomy right foot. cheilectomy right foot Description of Surgical Findings:: hemostasis: ankle tourniquet 250mmHg 42 minutes suture: 3-0, 4-0 vicryl, 4-0 monocryl, 4-0 nylon findings: arthritis 1st MPJ local anesthetic: 20cc 0.25% bupivacaine Materials: Ar[employer] endoscopic plantar fasciotomy kit agricultural technician: Taryn Watson - surgeon: Taryn Watson DPM. 1st Assist: Rochelle Barajas PGY-1 Type of Anesthesia:: General, Local Specimen's removed: none Estimated Blood Loss (mL): minimal Description of Procedure: Indications for procedure: Patient is a 50-year-old female who presents to the office with complaints of pain in her right heel and right big toe joint. Patient states that she has had this heel pain on and off for years. Patient was previously treated at our office by another physician for the heel pain. Patient states pain has not resolved. Patient also has pain to her right big toe joint with limited dorsiflexion range of motion noted with palpable bony spurs. Patient underwent physical therapy without any relief of her symptoms both by previous physician and under my care. Patient had MRI obtained last year by previous physician which demonstrated plantar fasciitis. There is concern on physical exam for extensor hallucis longus tendon pathology along with her limited range of motion to the first metatarsophalangeal joint. A repeat MRI was obtained which did not demonstrate any tendon pathology but did show some joint effusion with spurring noted to 1st MPJ. Discussed with patient need to go to surgery in order to remove the arthritis and bony spurring from the first metatarsophalangeal joint in order to relieve her pain and increase her range of motion. Also discussed due to the chronic nature of her plantar fasciitis endoscopic plantar fasciotomy to her right foot as well to help relieve her pain. Discussed with the patient all risk associated with undergoing surgery as regards to COVID-19 exposure. Discussed all risks, benefits, alternatives, and complications including but not limited to infection delayed healing nonhealing need for further surgery with the patient. No guarantees were given or implied. Patient agreed to proceed with the procedure. All questions answered. Description of the procedure: Patient was seen in the preoperative holding area where the chart was reviewed and patient was examined and all questions were answered to patient satisfaction. Patient was then transferred to the OR and placed on the OR table in the supine position. After administration of anesthetic noted above, as well as local anesthetic and an ankle block type fashion a well-padded ankle tourniquet was applied but not inflated at this time to the operative limb. The operative limb was then prepped and draped in usual sterile fashion. The operative limb was then elevated and examined with Esmarch bandage and the ankle tourniquet was inflated 250 mmHg and then lowered onto the sterile field. Attention was then directed to the medial aspect of the patient's heel. A 1 cm incision was drawn out just distal to and medial to the medial calcaneal tuberosity. A 15 blade was then used utilized to carry out the incision. A hemostat was then introduced in order to bluntly dissect down to the level of the plantar fascia. Once this was palpated the Ar[employer]MagMe endoscopic plantar fasciotomy kit was then utilized in order to pass the plane finder plantar to the plantar fascia to the lateral aspect of the foot. A corresponding stab incision was made at this level. The cannula and obturator were then placed from medial to lateral foot through these incisions. A rasp was utilized in order to remove any fatty attachments to the plantar fascia. Cotton swabs were passed across the trocar in order to allow for better visualization. An endoscopic camera was then inserted and the plantar fascia was visualized. A curved hook blade was then utilized in order to transect the medial third of the plantar fascia. This was visualized under endoscopic camera. The underlying muscle belly was visualized. No remaining plantar fascial attachments were noted. It was noted that there is increased range of dorsiflexion and if palpable deficits to the medial band of the plantar fascia at this level. The site was then flushed with normal sterile saline. Site was then closed with 4-0 nylon in simple and horizontal suture fashion. Use of the [employer]threx and endoscopic plantar fasciotomy kit was utilized with [employer] circulation sales representative in the room to manufacture guidelines. Attention was then directed to the dorsal aspect of the first metatarsophalangeal joint. A 5 cm linear longitudinal incision was drawn drawn out with a skin scribe medial and parallel to the extensor hallucis longus tendon over the joint. A 15 blade was then utilized in order to make the incision through the epidermis and dermal layers into the subcutaneous tissue with all vital neurovascular structures retracted or cauterized as necessary. Visualization of the extensor hallucis longus tendon was made which was noted to be healthy in appearance. This was retracted laterally. A 15 blade was utilized to dissect down to the level of bone. It should be noted there is a lot of bony prominence noted to the first metatarsal head. All soft tissue attachments then removed from the head first metatarsal and base of the proximal phalanx. The first metatarsal joint was inspected and he was noted that there was some cartilage damage with approximately 5% of the metatarsal head denuded. A sagittal saw was then introduced in order to remove the dorsal, medial, and lateral bony prominence off the head at the first metatarsal. Sagittal saw was also utilized as well as a rongeur to her remove dorsal prominence to the proximal phalanx. All joint mice were also removed. A significant increase in dorsiflexion range of motion of the first metatarsophalangeal joint was noted. Patient is now within normal range. All sharp bony edges were removed. Site was then flushed with copious amounts of normal sterile saline. The site was closed in a layered suture fashion with 3-0 Vicryl for running capsular closure, 4-0 Vicryl for running subcutaneous closure, and 4-0 Monocryl for running subcuticular skin closure. The site was then dressed with Steri-Strips, Betadine soaked Adaptic, 4 x 4's, Kerlix, Ko wrap. The ankle tourniquet was deflated with prompt brisk hyperemic response noted to all digits of patient's right foot. Patient was then transferred from the OR to PACU with vital signs stable and vascular status intact. Patient will be discharged with the following written and oral postoperative instructions: 1 patient is to keep dressing clean, dry, and intact 2 patient is to follow-up in office in [address] Watson 3 patient take all medications as prescribed 4 patient is to be partial weightbearing to the operative limb 5 patient is to watch for signs of infection including nausea, fever, vomiting, chills, chest pain, or shortness of breath and if seen patient is contact doctor's office or the emergency room. Patient is also contact doctor's office if there is any questions or concerns. - Complications none - Admit VTE Documentation VTE Present on Admission: Yes VTE Mechan Device Prophylaxis: SCD's VTE Pharm Prophylaxis ordered?: No Reason prophylaxis not ordered:: Procedure Not Indicated
--- NOTE | 2020-12-18 14:22 | DCINST_ITS ---
Discharge Diet: No Restrictions Discharge Activity: - - in surgical shoe, limit activity Weight Bearing Status: Partial weight bearing - in surgical shoe Keep extremity elevated above heart level: Right Leg Call your doctor if your incision/area has: Continuous Slow Oozing, Sudden Increased Bleeding, Increased Pain/ Swelling, Increased Redness, Foul Smelling Discharge Call your doctor if you observe: Fever of 101 or Higher, Numbness or Tingling, Shortness of breath, Fainting spells, Chest pain, Calf discomfort, Uncontrolled pain Cleanse incision/area with: Keep Dressing Clean & Dry Allergies/Adverse Reactions: Allergies diphenhydramine [From Benadryl] Allergy (Verified 12/18/20 13:25) Fever and skin rash hydrocodone bitartrate [From Vicodin] Allergy (Verified 12/18/20 13:25) Rash ibuprofen [From Advil] Allergy (Verified 12/18/20 13:25) Other loratadine [From Claritin] Allergy (Verified 12/18/20 13:25) Fever and skin rash morphine Allergy (Verified 12/18/20 13:25) Other moxifloxacin [From Avelox] Allergy (Verified 12/18/20 13:25) Hives Penicillins Allergy (Verified 12/18/20 13:25) Rash ANYTHING OVER THE COUNTER. Allergy (Uncoded 12/18/20 13:25) Other Medications to take at Discharge Aspirin 81 mg PO DAILY 11/24/17 Albuterol IH (ProAir) [Proair Hfa (SP)Vent Pts] 1 puff INHALATION Q6H PRN PRN 12/05/20 Oxycodone HCl/Acetaminophen [Percocet 5-325 mg Tablet] 1 each PO Q8H PRN PRN 7 Days #20 tablet 12/18/20 The following prescriptions were given: Oxycodone HCl/Acetaminophen [Percocet 5-325 mg Tablet] 1 each PO Q8H PRN PRN 7 Days #20 tablet PRN Reason: Pain Score 4-10 Transmission Status: Sent to [facility] Primary Care Physician: Jerica Fisher MD [Primary Care Provider] - Test Results: Test results from this visit will be discussed in further detail at your follow- up appointment, if applicable. Please Follow Up With: Taryn Watson DPM When: 1 week, already scheduled Proposed Discharge Date: 12/18/20
[2020-12-18] MEDS: Bupivacaine 0.25% 30 ML Vial (14:30)
--- NOTE | 2020-12-18 15:35 | RAD_ITS ---
INDICATION: post op EXAMINATION/TECHNIQUE: X-RAY - RIGHT XR Foot Min 3 Views COMPARISON: None. FINDINGS: No acute fracture or malalignment. No blastic or lytic lesions. Postsurgical changes from cheilectomy and endoscopic plantar fasciotomy. Mild degenerative changes of the 1st MTP joint. Plantar heel spur. RAD/Foot min 3 Views IMPRESSION: Postsurgical changes from cheilectomy and endoscopic plantar fasciotomy. Plantar heel spur. Electronically Signed: Bob Veloz MD at 16:44 EDT Tel , Service support ,
[2020-12-18] MEDS: oxyCODONE 5 MG Tablet PO (16:40)
[2020-12-18] MEDS: Acetaminophen 325 MG Tablet PO (16:40)
== END 2020-12-18 17:18 | disposition home or self-care (01) ==
LOC: SDC 12:56 → AC 12:56
PROVIDERS: PCP Family Medicine; Referring Provider Podiatrist Foot & Ankle Surgery; Visit Provider Podiatrist Foot & Ankle Surgery
PROC: (CPT 29893; principal; 2020-12-18 14:15)
DX: M72.2 Plantar fascial fibromatosis (principal); M20.5X1 Other deformities of toe(s) (acquired), right foot; J45.909 Unspecified asthma, uncomplicated; M19.071 Primary osteoarthritis, right ankle and foot; Z85.038 Personal history of other malignant neoplasm of large intestine; Z86.718 Personal history of other venous thrombosis and embolism; Z79.51 Long term (current) use of inhaled steroids; Z87.891 Personal history of nicotine dependence; Z20.822 Contact with and (suspected) exposure to COVID-19
CPT/HCPCS: 01480; 28289; 29893; 73630; 87426; C9803; J7120; J2405

== ENCOUNTER → 2021-06-26 09:18 | Outpatient (CLI) | payer MEDICAID, SELFPAY ==
--- NOTE | 2021-06-26 09:21 | RAD_ITS ---
INDICATION: PAIN EXAMINATION/TECHNIQUE: X-RAY - RIGHT XR Hip Unilateral with Pelvis when performed; 2-3 Views 4 VIEWS COMPARISON: CT abdomen and pelvis 01/20/2018 and abdominal x-rays to 2011 FINDINGS: Bilateral hips show joint space loss and degenerative osteophyte formation femoral head neck junctions, right slightly greater than the left. No significant sclerosis or subchondral cystic changes acetabulum. Additional views right femur show no fracture or focal osseous lesion. Normal sphericity femoral head. Left hip show a small os acetabulum and tiny femoral head neck junction cyst, findings that can be associated with impingement. Sacroiliac joints and symphysis pubis are normal in appearance. Intact bony pelvis without fracture or focal osseous lesion. RAD/HIP, UNI W/ Pelvis 2-3 Views IMPRESSION: Degenerative changes bilateral hips, right greater than left. Additional findings suspicious for possible impingement, left hip. Electronically Signed: Zechariah Plasencia DO at 0:04 EDT Tel , Service support ,
== END ==
PROVIDERS: PCP Family Medicine; Referring Provider Family Medicine; Visit Provider Family Medicine
DX: M25.551 Pain in right hip (principal)
CPT/HCPCS: 73502

== ENCOUNTER → 2021-07-21 10:15 | Outpatient (CLI) | payer MEDICAID, SELFPAY ==
--- NOTE | 2021-07-21 10:17 | BI_ITS ---
MAMMOGRAPHY - BILATERAL SCREENING REASON FOR EXAM: Female, 51 years old. Routine annual screening examination. PERTINENT HISTORY: Grandmother with breast cancer. TECHNIQUE: Digital bilateral breast alize (3D mammographic acquisition) in the CC and MLO projections. 2-D mediolateral oblique (MLO) and craniocaudad (CC) views of both breasts were obtained. CAD: Full Field Digital Mammography with Computer Added Detection was performed. COMPARISON: Comparison is made with prior study dated 12/18/2019 and 09/19/2018. Remote left breast biopsy. FINDINGS: Breast Composition: The breasts are heterogeneously dense, which may obscure small masses. There are no dominant masses or suspicious calcifications. A tissue clip marker in the slightly upper retroareolar region of the breast. No other significant abnormalities are identified. There has been no significant change since the prior study. BI/SCRN MAMM (CAD)W/ALIZE BILAT IMPRESSION: Stable bilateral screening mammogram. Yearly follow-up mammogram recommended. (A) ASSESSMENT CATEGORY: BIRADS Category 2: Benign. A letter regarding these results will be sent to the patient by the facility within 30 days. Approximately 10% of breast cancers are not detected by mammography. A normal mammogram should not delay biopsy of a clinically suspicious abnormality. [id number] Electronically Signed: Delmer Miller MD at 11:23 EST , Service support ,
== END ==
PROVIDERS: PCP Family Medicine; Referring Provider Family Medicine; Visit Provider Family Medicine
DX: Z12.31 Encounter for screening mammogram for malignant neoplasm of breast (principal)
CPT/HCPCS: 77063; 77067

== ENCOUNTER 2022-04-23 13:04 | Emergency (ER) | payer MEDICAID, SELFPAY ==
[2022-04-23 13:05] VITALS: BP 123/97; PULSE 118; RESP 20; TEMP 37.5; O2SAT 97; BMI 32.1
--- NOTE | 2022-04-23 13:33 | EX.ED.DYSGE1 ---
HPI <RICO Rutherford - Last Filed: 04/23/22 15:38> History of Present Illness Chief Complaint: General Illness Narrative Narrative: 52-year-old female with history of factor V Leiden, history of meningitis, history of stroke presents to the emergency department with 2 days of generalized malaise, cough, sore throat, headache, full body pain as well as fever and chills. Patient is currently not vaccinated with COVID-19, states that she has put too much stuff in her body already. Patient states that she now has a cough, feels fatigue and is concerned that there is something more wrong. Patient denies any vomiting, patient denies any blood in stool or vomit. Patient denies any neck pain. Denies any sick contacts. PFS <RICO Rutherford - Last Filed: 04/23/22 15:38> [facility] Medical History (Updated 04/23/22 @ 15:09 by RICO Rutherford) Arthritis Asthma Colon cancer Difficulty balancing Fatigue Kidney disease SOB (shortness of breath) Stroke Home Medications aspirin 81 mg chewable tablet 81 mg PO DAILY 11/24/17 [History Last Taken Unknown] albuterol sulfate 90 mcg/actuation aerosol inhaler 1 puff inhalation Q6H PRN PRN Sob &/Or Wheezing 12/05/20 [History Last Taken Unknown] nirmatrelvir 300 mg (150 mg x2)-ritonavir 100 mg tablet,dose pack(EUA) (Paxlovid) See Rx Instructions PO .COMPLEX #30 tabs 04/23/22 [Rx Last Taken Unknown] Allergy/AdvReac Type Severity Reaction Status Date / Time diphenhydramine Allergy Fever and Verified 04/23/22 13:08 [From Benadryl] skin rash hydrocodone bitartrate Allergy Rash Verified 04/23/22 13:08 [From Vicodin] ibuprofen [From Advil] Allergy Other Verified 04/23/22 13:08 loratadine [From Claritin] Allergy Fever and Verified 04/23/22 13:08 skin rash morphine Allergy Other Verified 04/23/22 13:08 moxifloxacin [From Avelox] Allergy Hives Verified 04/23/22 13:08 Penicillins Allergy Rash Verified 04/23/22 13:08 ANYTHING OVER THE COUNTER. Allergy Other Uncoded 04/23/22 13:08 Surgical History cancerous tumor removed from colon H/O hernia repair H/O: hysterectomy Hx of cholecystectomy Hx of shoulder surgery hx of wrist surgery Social History (Updated 11/24/17 @ 13:24 by Marino JORDAN, PA) Smoking Status: Former smoker alcohol intake: never ROS <RICO Rutherford - Last Filed: 04/23/22 15:38> ROS ED ROS Narrative Constitutional: Negative for weight loss, weakness. Positive fever and chills Eyes: Negative for vision loss, vision change, double vision ENT: Negative for any , ear pain, congestion. Positive for sore throat Cardiovascular: Negative for any chest pain, tightness, palpitations Respiratory: Negative for any sputum production, hemoptysis, dyspnea, dyspnea on exertion, orthopnea. Positive for cough Gastrointestinal: Negative for any abdominal pain,vomiting, diarrhea, constipation, blood in stool, blood in vomit. Positive for nausea : Negative for any urinary frequency, dysuria, retention, blood in urine Muscle skeletal: Negative for any muscle joint pain, stiffness, arthralgias, neck pain, back pain. Positive for myalgias Neurological: Negative for any headache, syncope, numbness or tingling, dizziness Skin: Negative for any rashes, lumps, itching, abrasions, lacerations Psychiatric: Negative for any depression, anxiety, stress, suicidal ideation, homicidal ideation Hematologic: Negative for any easy bruising, excessive bruising, easy bleeding Allergies: Negative for any eczema, hives, rash EXAM <RICO Rutherford - Last Filed: 04/23/22 15:38> Physical Exam Narrative Exam Narrative: Vital signs reviewed. Patient does appear warm to the touch. Patient is in no respiratory distress, she is acting appropriate. HEET: Head normocephalic atraumatic, TMs clear bilaterally. Posterior pharynx is clear, moist mucous membranes. Nares clear bilaterally. Neck: Supple with no lymphadenopathy or tenderness. No signs of meningismus, negative jolt sign. Cardiac: Regular rate and rhythm no murmurs gallops or rubs, equal peripheral pulses bilaterally. Respiratory: Lungs clear to auscultation bilaterally. No chest tenderness. Abdomen: Soft, nontender, nondistended. No abdominal bruit or pulsatile masses. No hepatosplenomegaly Extremities: No peripheral edema, no signs of gross trauma or deformity. Active full range of motion of all extremities. Neuro: Cranial nerves II through XII intact, no focal neurological deficits. Skin: Clean dry and intact with no rash, purpura, petechiae, vesicles or pustules. Backs/flank: No CVA tenderness, no midline spinal tenderness, no deformity. Psych: Normal mood and affect. No SI, HI or acute psychosis. Const Vital Signs: 04/23/22 13:05 04/23/22 13:33 04/23/22 13:44 Temperature 99.5 F H 100.5 F H Temperature Source Temporal Oral Pulse Rate 118 H 93 Respiratory Rate 20 H 18 Respiratory Effort Short of Breath Respiratory Pattern Normal Blood Pressure 123/97 H 123/97 H Blood Pressure Mean 105 105 Pulse Ox 97 98 Oxygen Delivery Method Room Air Room Air 04/23/22 15:35 Temperature Temperature Source Pulse Rate 79 Respiratory Rate 15 Respiratory Effort Respiratory Pattern Blood Pressure Blood Pressure Mean Pulse Ox 95 Oxygen Delivery Method Room Air Positive well nourished and well developed General Appearance ED: well developed <Dr. Sami Babb MD - Last Filed: 04/23/22 23:00> Physical Exam Const Vital Signs: 04/23/22 13:05 04/23/22 13:33 04/23/22 13:44 Temperature 99.5 F H 100.5 F H Temperature Source Temporal Oral Pulse Rate 118 H 93 Respiratory Rate 20 H 18 Respiratory Effort Short of Breath Respiratory Pattern Normal Blood Pressure 123/97 H 123/97 H Blood Pressure Mean 105 105 Pulse Ox 97 98 Oxygen Delivery Method Room Air Room Air 04/23/22 15:35 Temperature Temperature Source Pulse Rate 79 Respiratory Rate 15 Respiratory Effort Respiratory Pattern Blood Pressure Blood Pressure Mean Pulse Ox 95 Oxygen Delivery Method Room Air MDM <RICO Rutherford - Last Filed: 04/23/22 15:38> [facility] Lab Data Labs: Laboratory Results - last 24 hr 04/23/22 04/23/22 04/23/22 13:45 13:45 13:55 WBC 4.2 L RBC 4.75 Hgb 13.7 Hct 40.9 MCV 86.1 MCH 28.8 MCHC 33.5 RDW Std Deviation 41.0 RDW Coeff of Marcos 13.1 Plt Count 182 MPV 10.5 Immature Gran % (Auto) 0.200 Neut % (Auto) 80.9 H Lymph % (Auto) 6.0 L [place] % (Auto) 12.0 H Eos % (Auto) 0.2 Baso % (Auto) 0.7 Absolute Neuts (auto) 3.4 Absolute Lymphs (auto) 0.25 L Nucleated RBC % 0 Differential Comment Diff Path Review May foll Platelet Estimate ADEQUATE RBC Morphology NORM C+C Sodium 140 Potassium 3.6 Chloride 113 H Carbon Dioxide 20.0 L Anion Gap 7 BUN 11 Creatinine 0.82 Estim Creat Clear Calc 87.66 Est GFR (MDRD) Af Amer 94 Est GFR (MDRD) Non-Af 77 BUN/Creatinine Ratio 13.4 Glucose 104 Calcium 8.7 Urine Color Yellow Urine Clarity Sl. Cloudy Urine pH 6.5 Ur Specific [place] 1.015 Urine Protein 15 H Urine Glucose (UA) Normal Urine Ketones 5 H Urine Occult Blood 25 H Urine Nitrite Negative Urine Bilirubin Negative Urine Urobilinogen Normal Ur Leukocyte Esterase Negative Urine RBC 0-5 SEEN Urine WBC 0 SEEN Ur Squamous Epith Cells 5-10 SEEN Urine Bacteria 3+ Urine Mucus 0 SEEN Treatment and Re-Evaluation Narrative: I have personally performed a face to face assessment of the patient and have reviewed the HODA Note. I performed a substantive portion of the visit including all aspects of the following. My toro findings include: History: Patient presents with a couple days of really generalized malaise achiness decreased energy. She is not having dyspnea. She does have a history of what sounds like asthma but really is not using her inhaler. She is just concerned that she might have COVID as she is not vaccinated. She also is concerned about just overall kidney function because she had problem with her kidneys once when she had meningitis. Exam shows patient is nontoxic. She is pleasant. Her saturations are 99 to 100% on room air while I am in the room. Lungs do sound clear. Heart is regular. Abdomen is soft and nontender. There is no peripheral edema. Overall her exam is quite normal. Medical Decison Making we did do basic blood work and urine. No marked abnormalities. I did not do a chest x-ray because she has no cough dyspnea or hypoxia. Her lungs sound clear. Her COVID is positive. We discussed backslid with her. She does not want this. We discussed reasons to return. Patient appears well, patient appears nontoxic, vital signs are stable. Patient presents to the emergency department with concern for 24 hours of body aches, fever, chills, cough. Patient was confirmed to dehydration, patient did receive a CBC which was unremarkable, chemistries was unremarkable, patient's urinalysis did show 3+ bacteria however there are no leukocytes, no nitrates, patient not having any urinary symptoms. She was given IV fluids, Tylenol, this did decrease her temperature, patient felt much better on reassessment with a heart rate down from 1 18-93. Patient was positive for COVID-19. Patient is currently not vaccinated. I do believe the patient can be discharged, the patient shows so hypoxia, respiratory symptoms. I did discuss Paxlovid with the patient, however after consideration with her and her , they decided to not take it. Patient will follow up closely with her PCP peer instructed to continue take Tylenol, as well as increase her fluid intake. She is instructed return for any worsening symptoms. Patient stable for discharge <Dr. Sami Babb MD - Last Filed: 04/23/22 23:00> [facility] Lab Data Attestation: I reviewed the patient's lab results. Labs: Laboratory Results - last 24 hr 04/23/22 04/23/22 04/23/22 13:45 13:45 13:55 WBC 4.2 L RBC 4.75 Hgb 13.7 Hct 40.9 MCV 86.1 MCH 28.8 MCHC 33.5 RDW Std Deviation 41.0 RDW Coeff of Mar[place] 13.1 Plt Count 182 MPV 10.5 Immature Gran % (Auto) 0.200 Neut % (Auto) 80.9 H Lymph % (Auto) 6.0 L [place] % (Auto) 12.0 H Eos % (Auto) 0.2 Baso % (Auto) 0.7 Absolute Neuts (auto) 3.4 Absolute Lymphs (auto) 0.25 L Nucleated RBC % 0 Differential Comment Diff Path Review May foll Platelet Estimate ADEQUATE RBC Morphology NORM C+C Sodium 140 Potassium 3.6 Chloride 113 H Carbon Dioxide 20.0 L Anion Gap 7 BUN 11 Creatinine 0.82 Estim Creat Clear Calc 87.66 Est GFR (MDRD) Af Amer 94 Est GFR (MDRD) Non-Af 77 BUN/Creatinine Ratio 13.4 Glucose 104 Calcium 8.7 Urine Color Yellow Urine Clarity Sl. Cloudy Urine pH 6.5 Ur Specific [place] 1.015 Urine Protein 15 H Urine Glucose (UA) Normal Urine Ketones 5 H Urine Occult Blood 25 H Urine Nitrite Negative Urine Bilirubin Negative Urine Urobilinogen Normal Ur Leukocyte Esterase Negative Urine RBC 0-5 SEEN Urine WBC 0 SEEN Ur Squamous Epith Cells 5-10 SEEN Urine Bacteria 3+ Urine Mucus 0 SEEN Treatment and Re-Evaluation Narrative: I have personally performed a face to face assessment of the patient and have reviewed the HODA Note. I performed a substantive portion of the visit including all aspects of the following. My toro findings include: History: Patient presents with a couple days of really generalized malaise achiness decreased energy. She is not having dyspnea. She does have a history of what sounds like asthma but really is not using her inhaler. She is just concerned that she might have COVID as she is not vaccinated. She also is concerned about just overall kidney function because she had problem with her kidneys once when she had meningitis. Exam shows patient is nontoxic. She is pleasant. Her saturations are 99 to 100% on room air while I am in the room. Lungs do sound clear. Heart is regular. Abdomen is soft and nontender. There is no peripheral edema. Overall her exam is quite normal. Medical Decison Making we did do basic blood work and urine. No marked abnormalities. I did not do a chest x-ray because she has no cough dyspnea or hypoxia. Her lungs sound clear. Her COVID is positive. We discussed Paxlovid with her. She does not want this but then changed her mind. We discussed reasons to return. Patient appears well, patient appears nontoxic, vital signs are stable. Patient presents to the emergency department with concern for 24 hours of body aches, fever, chills, cough. Patient was confirmed to dehydration, patient did receive a CBC which was unremarkable, chemistries was unremarkable, patient's urinalysis did show 3+ bacteria however there are no leukocytes, no nitrates, patient not having any urinary symptoms. She was given IV fluids, Tylenol, this did decrease her temperature, patient felt much better on reassessment with a heart rate down from 1 18-93. Patient was positive for COVID-19. Patient is currently not vaccinated. I do believe the patient can be discharged, the patient shows so hypoxia, respiratory symptoms. I did discuss Paxlovid with the patient, however after consideration with her and her , they decided to not take it. Patient will follow up closely with her PCP peer instructed to continue take Tylenol, as well as increase her fluid intake. She is instructed return for any worsening symptoms. Patient stable for discharge Discharge Plan Triage Chief Complaint: General Illness ED Midlevel Provider: Derick Gómez ED Provider: Sami Babb Dx/Rx/DC Orders Clinical Impression: COVID-19, Myalgia, Fever Instructions: Caring for Someone Who Has COVID-19, ED Fever Control (Adult) Prescriptions: New Paxlovid (EUA) 300 mg (150 mg x 2)-100 mg tablets,dose pack See Rx Instructions .ROUTE .COMPLEX Qty: 30 0RF Rx Instructions: take TWO 150 mg tablets of nirmatrelvir with ONE 100 mg tablet of ritonavir twice daily for 5 days No Action aspirin 81 MG tablet,chewable 81 mg PO DAILY albuterol sulfate 1 PUFF inhaler 1 puff INHALATION Q6H PRN PRN (Reason: Sob &/Or Wheezing) Primary Care Provider: Jerica Fisher Referrals: Jerica Fisher MD [Primary Care Provider] - Activity Restrictions/Additional Instructions: Use Tylenol for your pain and fevers, please return for any worsening symptoms. Follow-up with your PCP Disposition Disposition: Home, Self Care Discharge Date/Time: 04/23/22 15:36
[2022-04-23 13:44] VITALS: BP 123/97; PULSE 93; RESP 18; TEMP 38.1; O2SAT 98
[2022-04-23] MEDS: Ondansetron 4 MG/2 ML Vial IV (13:52)
[2022-04-23] MEDS: 0.9% Normal Saline 1,000 ML 1000 ML IV (13:53)
[2022-04-23] MEDS: Acetaminophen 500 MG Tablet 1000 MG PO (13:53)
[2022-04-23 13:57] LABS: Absolute Lymphocyte Count 0.25 X10^3/uL (0.83-4.51); Absolute Neutrophil Count 3.4 X10^3/uL (2.0-7.7); Basophil# 0.03 X10^3/uL; Basophil% 0.7 % (0-1); Eosinophil# 0.01 X10^3/uL; Eosinophils% 0.2 % (0-5); Hematocrit 40.9 % (37-47); Hemoglobin 13.7 g/dL (12.0-15.0); Lymphocyte # 0.25 X10^3/ul (0.83-4.51); Mean Corp Hgb Conc 33.5 g/dL (32-36); Mean Corpuscular Hgb 28.8 pg (27.0-32.0); Mean Corpuscular Volume 86.1 fL (81-99); Mean Platelet Vol. 10.5 fl (6.2-12.0); NRBC Flagged by Analyzer 0 % (0-5); Neutrophil # 3.38 X10^3/uL (2.7-7.7); Neutrophil % 80.9 % (47-70); POSITIVE DIFFERENTIAL YES; Platelet Count 182 K/mm3 (150-450); RBC Distribution Width CV 13.1 % (11.6-14.6); Red Blood Count 4.75 M/mm3 (4.2-5.4); White Blood Count 4.2 K/mm3 (4.4-11.0)
[2022-04-23 14:00] LABS: Mucous, Urine 0 SEEN /hpf (<or=2+); White Blood Cells 0 SEEN /hpf (0-5)
[2022-04-23 14:04] LABS: Color, Urine Yellow (Yellow); Glucose, Dipstick Normal (Normal); Ketone-Dipstick 5 mg/dl (Negative); Leukocyte Esterase-Dipstick Negative /ul (Negative); Nitrite-Dipstick Negative (Negative); Occult Blood-Urine 25 /ul (Negative); Protein-Dipstick 15 mg/dl (Negative); Specific Gravity, Urine 1.015 (1.002-1.030); Urine Bilirubin Dipstick Negative (Negative); Urine Clarity Sl. Cloudy (Clear); Urine Urobilinogen Normal (Normal); Urine pH 6.5 (5.0 - 8.0)
[2022-04-23 14:13] LABS: Anion Gap 7 (5-15); BUN 11 mg/dL (7-18); BUN/Creat Ratio 13.4 RATIO (10-20); Calcium,Total 8.7 mg/dL (8.5-10.1); Chloride 113 mmol/L (98-107); Creatinine, Serum 0.82 mg/dL (0.55-1.02); EST Glomerular Filtration Rate 77 mL/min (>60); Est Glom Filt Rate - Afr Amer 94 mL/min (>60); Estimated Creatinine Clearance 87.66 ml/min; Glucose 104 mg/dL (74-106); Potassium 3.6 mmol/L (3.5-5.1); Sodium Level 140 mmol/L (136-145)
[2022-04-23 14:18] LABS: Bacteria 3+ /hpf (None Seen)
[2022-04-23 14:19] LABS: Red Blood Cells-Urine 0-5 SEEN /hpf (0-5); Squamous Epithelial Cells - UA 5-10 SEEN /hpf (5-10)
[2022-04-23 14:38] LABS: Differential Indicated SCAN CRITERIA MET
[2022-04-23 14:39] LABS: Platelet Estimate ADEQUATE (ADEQ); Red Cell Morphology NORM C+C NORMAL (NORM C&C)
[2022-04-23 15:35] VITALS: PULSE 79; RESP 15; O2SAT 95
[2022-04-27 06:21] LABS: Pathologist Review Reviewed
== END 2022-04-23 15:36 | disposition home or self-care (01) ==
PROVIDERS: Nurse Practitioner; Emergency Provider Emergency Medicine; PCP Family Medicine; Visit Provider Emergency Medicine
DX: U07.1 COVID-19 (principal); D68.51 Activated protein C resistance; J45.909 Unspecified asthma, uncomplicated; M19.90 Unspecified osteoarthritis, unspecified site; Z87.891 Personal history of nicotine dependence; Z86.73 Personal history of transient ischemic attack (TIA), and cerebral infarction without residual deficits; Z28.310 Unvaccinated for COVID-19; Z79.82 Long term (current) use of aspirin
CPT/HCPCS: 80048; 81001; 85025; 87428; 96361; 96374; 99282; J7030; A4216; J2405

== ENCOUNTER → 2023-04-21 | Outpatient (CLI) | payer MEDICAID, SELFPAY ==
--- NOTE | 2023-04-21 07:45 | BI_ITS ---
MAMMOGRAPHY - BILATERAL SCREENING REASON FOR EXAM: Female, 53 years old. Routine annual screening examination. PERTINENT HISTORY: Grandmother with breast cancer. TECHNIQUE: Digital bilateral breast alize (3D mammographic acquisition) in the CC and MLO projections. 2-D mediolateral oblique (MLO) and craniocaudad (CC) views of both breasts were obtained. CAD: Full Field Digital Mammography with Computer Added Detection was performed. COMPARISON: Comparison is made with prior study dated July 21, 2021 and December 18, 2019. FINDINGS: Breast Composition: The breasts are heterogeneously dense, which may obscure small masses. There are no dominant masses or suspicious calcifications. No other significant abnormalities are identified. There has been no significant change since the prior study. BI/SCRN MAMM (CAD)W/ALIZE BILAT IMPRESSION: Stable bilateral screening mammogram. Yearly follow-up mammogram recommended. (A) ASSESSMENT CATEGORY: BIRADS Category 1: Negative. A letter regarding these results will be sent to the patient by the facility within 30 days. Approximately 10% of breast cancers are not detected by mammography. A normal mammogram should not delay biopsy of a clinically suspicious abnormality. [id number] Electronically Signed: Delmer Miller MD at 8:57 EDT ,
== END | disposition home or self-care (01) ==
LOC: OPBI 07:43
PROVIDERS: PCP Family Medicine; Referring Provider Family Medicine; Visit Provider Family Medicine
DX: Z12.31 Encounter for screening mammogram for malignant neoplasm of breast (principal)
CPT/HCPCS: 77063; 77067

== ENCOUNTER 2023-06-15 15:00 | Outpatient (RCR) | payer MEDICAID, SELFPAY ==
--- NOTE | 2023-05-18 14:27 | HP.PTEVAL ---
Patient's Visit Information Visit Information Visit Information: JADEN ARMSTRONG is a 53 year old F referred to Physical Therapy by Dr. Bhargav Deras DO with a diagnosis of L Achilles Tendonosis/tendonitis and R DDD Lumbar and OA R hip and labral t. Date of Evaluation: 05/18/23 Physical Therapist: Agueda Prather MPT Visit Plan Frequency: 2x /Week Duration: 2 Months Plan: Per pt request pt can not come 3X/ week like order said and can only 2X/ week. Pt reports that standing stretching achilles hurts so we will start with towel stretching of the gastroc in sitting and progress as able. 2X/ week for 60 min for L ankle/Achilles stretching, [place] per order to gastroc and achilles, strengthening including eccentrics. May also do US to the L Achilles tendon for pain/inflammation relief. Also work on R hip strength, core stability with HEP HEP: towel gastoc stretch, seated heel and toe raises, Bridges, Clam Shells Subjective Subjective: L foot started to hurt about 2 year ago. They have not done much with it cause she walks all day long. All she does is ice it. Ice does not help. She has neuropathy and ice makes her neuropathy go crazy. said it is so tight in her foot that he might have to do surgery. Dr Chacon said if can't get the foot to loosen up he will have to do surgery. 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 She is having trouble walking and can only walk from back door to her truck and the pain starts. She has shoe inserts and nothing helps. He has not tried cortisone injections in the L but has had them elsewhere and they do not work for her. Stairs are an issue at times. She has been doing some stretching at home against the wall and ankle alphabet. R hip pain started about the same time 2 years ago. 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 said she will do a THR on the R but does not want to do it too soon. The pain in her hip is in sitting and in standing. She gets groin pain. She reports that her hip locks but does not give out. Stairs are an issue with the hip. She has Brandon horses in her B calves. She has bad shoulders. Heat feels better after a long day of work. Pain L foot pain: Pain Intensity (Out of 10): 10 R hip pain: Pain Intensity (Out of 10): 6 Objective Objective: Gait: Walks with decrease stance time on the L LE MMT: R hip flex 9.4 and L hip flex 11.5 R knee ext 17.6 and L 17.6 R knee flex 10.5 and L 10.3 R hip abd in supine hoodlying R 13.1 and L 15.7 Bridge: Pt able to do 1/2 normal ROM bridge SLR: negative B Pt has pain with R hip ER and no pain with R hip IR. Pt has increase pain with piriformis stretching and pain in the groin with the compression of the stretch Patella DTR's: 2+/3 B TRUNK AROM: Flex 100%, Ext Neutral, SB B 75%, Rot B 75% Heel and Toe raises: Pt is not able to heel able to heel or toe raise B due to prior R toe surgery and PF on the L L Ankle AROM: L DF neutral and PF 35 degrees, INV 29 and EV 10 R DF 15 degrees, PF 20, INV 45 , EV 19 Gastroc muscle length: pain with stretching of the L achilles in supine Palpation: Tender L Achilles and boggy/swollen tendon noted. Balance/Special Test Scores Lower Extremity Functional Score: 25 Goals Goal 1:: I HEP Goal Time Frame: 4-6 Weeks Goal 2:: Increase LE strength (at time of the eval: LE MMT: R hip flex 9.4 and L hip flex 11.5 R knee ext 17.6 and L 17.6 R knee flex 10.5 and L 10.3 R hip abd in supine hoodlying R 13.1 and L 15.7) Goal Time Frame: 4-6 Weeks Goal 3:: Decrease R hip and L foot pain (at time of eval R hip was 6/10 and L Achilles pain 6/10) Goal Time Frame: 4-6 Weeks Goal 4:: Be able to walk with more equal stance time on B LE's Goal Time Frame: 4-6 Weeks Goal 5:: Increase L ankle AROM (at time of the eval: L DF neutral and PF 35 degrees, INV 29 and EV 10). Goal Time Frame: 4-6 Weeks Rehabilitation Potential Rehabilitation Potential: Good Anticipated Interventions Patient/Client Instruction: Educate patient on: Condition and Plan of Care For the Purpose of:: To decrease pain, To decrease swelling/inflammation, To increase ROM, To improve nutrient delivery to tissue, To improve muscle performance and motor function, To improve ability to perform ADL's, To increase tolerance to activity/condition/position, To improve performance and independence with ADL's, To decrease level of supervision to perform tasks, To improve ability of physical actions for home/community/work/leisure, To improve gait and locomotor functions, To improve health of tissue, To decrease soft tissue restriction and To increase flexibility/ROM Therapeutic Exercise to Include: Strength training, Balance training, Body mechanics, Postural training, Flexibilty training, Gait and locomotor training, Passive ROM, Active ROM and Dynamic Lumbar Stabilization For the Purpose of:: To decrease pain, To increase ROM, To improve nutrient delivery to tissue, To improve muscle performance and motor function, To improve ability to perform ADL's, To increase tolerance to activity/condition/position, To improve performance and independence with ADL's, To decrease level of supervision to perform tasks, To improve ability of physical actions for home/community/work/leisure, To improve gait and locomotor functions, To improve health of tissue, To decrease soft tissue restriction, To increase flexibility/ROM and To improve endurance Manual Therapy Techniques to Include: Other Comment: Lissa to L achilles For the Purpose of:: To decrease pain, To decrease swelling/inflammation, To increase ROM, To improve nutrient delivery to tissue and To increase flexibility/ROM Thermo therapy (hot pack): Yes For the Purpose of:: To decrease pain and To improve nutrient delivery to tissue Text: Thank you for the opportunity to evaluate your patient. For Medicare and Medicare HMO plans, please review the plan of care and approve it. It will need to be FAXED BACK to us at [phone] for Medicare purposes. For Medicare only, by signing this I certify the plan of care. Please let me know if there are questions or concerns regarding this plan of care. Physician Signature: Date:
--- NOTE | 2023-06-15 15:21 | HP.PTDCSUM ---
Discharge Summary D/C summary: It has been my pleasure to treat JADEN ARMSTRONG referred by Dr. Bhargav Deras DO, with the diagnosis of L Achilles Tendonosis/tendonitis and R DDD Lumbar and OA R hip and labral t for a total of 6 visit(s). Discharge Date: 06/15/23 Please see the following information for a summary of their discharge status. Subjective Subjective: Pt reports that she has to have Achilles Surgery soon. It has gotten a lot worse and they decided surgery was needed. He back still hurts. She struggled to get out of the car. They are concerned about blood clots and she will have a doppler especially since she is Factor V Pain L foot pain: Pain Intensity (Out of 10): 10 R hip pain: Pain Intensity (Out of 10): 9 Overall Improvement % Improvement: 0 Objective Objective/Function: LE MMT: R hip flex 18.2 and L hip flex 20.7 R knee ext 16.8 and L 13.5 R knee flex 13.2 and L 3.4 R hip abd in supine hoodlying R 13.1 and L 15.7) L DF -12, PF 35 degrees, INV 15 and EV 10 Goals Goal 1:: I HEP Goal Progress: Goal Met Goal 2:: Increase LE strength (at time of the eval: LE MMT: R hip flex 9.4 and L hip flex 11.5 R knee ext 17.6 and L 17.6 R knee flex 10.5 and L 10.3 R hip abd in supine hoodlying R 13.1 and L 15.7) Goal Progress: Not Progressing Goal 3:: Decrease R hip and L foot pain (at time of eval R hip was 6/10 and L Achilles pain 6/10) Goal Progress: Not Progressing Goal 4:: Be able to walk with more equal stance time on B LE's Goal Progress: Not Progressing Goal 5:: Increase L ankle AROM (at time of the eval: L DF neutral and PF 35 degrees, INV 29 and EV 10). Goal Progress: Not Progressing Plan Plan: DC PT back to surgeon for surgery D/C Information Discharge Comments: DC PT back to surgeon d/c sentence: If there are questions or concerns regarding this patient's physical therapy, please feel free to call me at [phone]. Thank you for the referral of this patient. Sincerely, Agueda Prather, MPT Balance/Gait/Functional tests Balance/Special Test Scores Lower Extremity Functional Score: 39 Improvement % Improvement: 0
== END 2023-06-15 19:00 | disposition home or self-care (01) ==
LOC: PT 15:00
PROVIDERS: PCP Family Medicine; Referring Provider Orthopaedic Surgery; Visit Provider Orthopaedic Surgery
DX: M51.36 Other intervertebral disc degeneration, lumbar region (principal); M16.11 Unilateral primary osteoarthritis, right hip; M24.159 Other articular cartilage disorders, unspecified hip; M76.62 Achilles tendinitis, left leg
CPT/HCPCS: 97035; 97110; 97140; 97162; 97530

== ENCOUNTER → 2023-06-21 | Outpatient (CLI) | payer MEDICAID, SELFPAY ==
--- NOTE | 2023-06-21 14:55 | VDLE_ITS ---
Reason For Study: pain Procedure LEFT This is a venous duplex using B-mode, color GSV is normal. flow and spectral Doppler. CFV is compressible, spontaneous, phasic, Exam performed in department. competent, and demonstrates normal The exam was abbreviated due to the COVID 19 augmentation. protocol. FV is compressible, spontaneous, phasic, The exam was diagnostic. competent and demonstrates normal A preliminary report was called and/or faxed augmentation. to Zechariah Chacon. POP V is compressible, spontaneous, phasic, competent and demonstrates normal augmentation. T/P Trunk is compressible. PTV is compressible. LT PerV is compressible. VL/Venous Duplex US, Unilateral Interpretation Summary Deep veins of the left lower extremity are patent and compressible segmentally. There is no evidence of left lower extremity deep vein thrombosis. The left great saphenous vein mattie ears patent and compressible segmentally. Ordering Physician: Zechariah Chacon Performed By: Evan Bernal RVShawna
== END | disposition home or self-care (01) ==
LOC: CVS 14:54
PROVIDERS: PCP Family Medicine; Referring Provider Student in an Organized Health Care Education/Training Program; Visit Provider Student in an Organized Health Care Education/Training Program
DX: M76.62 Achilles tendinitis, left leg (principal); M79.662 Pain in left lower leg
CPT/HCPCS: 93971

== ENCOUNTER → 2023-06-30 | Outpatient (CLI) | payer MEDICAID, SELFPAY ==
--- NOTE | 2023-06-30 15:31 | MRI_ITS ---
STUDY: MRI LEFT ANKLE WITHOUT CONTRAST REASON FOR EXAM: Female, 53 years old. Achilles tendinitis. Pain, swollen. TECHNIQUE: Standardized fat and water weighted pulse sequences were obtained in all 3 orthogonal planes. COMPARISON: None. FINDINGS: Normal subcutis adipose space. Normal posterior tibialis tendon. Normal flexor digitorum longus tendon. Normal flexor hallucis longus tendon. Normal peroneus longus and brevis tendons. Normal tibialis anterior tendon. Normal extensor hallucis longus tendon. Normal extensor digitorum longus tendons. There is fusiform thickening/tendinosis of the Achilles tendon with increased intrasubstance signal, located between 2 to 7 cm above its distal insertion, measuring up to 1.6 cm in greatest AP thickness. There is no Achilles tendon tear/rupture. Normal plantar fascia. There is a small plantar calcaneal spur. Normal intrinsic muscles of the rearfoot. Normal distal tibiofibular syndesmotic ligamentous complex. Normal lateral ligamentous complex. Normal subtalar ligaments and sinus tarsi. Normal deltoid ligamentous complex. Normal plantar calcaneonavicular (spring) ligament. Normal tibiotalar articulation. Normal talar dome. Normal subtalar articulations. Normal talonavicular articulation. Normal calcaneocuboid articulation. Normal navicular-cuneiform articulations. MRI/Lower Ext Joint Only (Routine) IMPRESSION: Fusiform tendinosis of the Achilles tendon, located between 2 to 7 cm above its distal insertion, measuring up to 1.6 cm in greatest AP thickness. No Achilles tendon tear/rupture. Small plantar calcaneal spur. Electronically Signed: Gerald Grigsby MD at 8:54 EDT ,
== END | disposition home or self-care (01) ==
LOC: MRI 15:15
PROVIDERS: PCP Family Medicine; Referring Provider Student in an Organized Health Care Education/Training Program; Visit Provider Student in an Organized Health Care Education/Training Program
DX: M79.622 Pain in left upper arm (principal); M76.62 Achilles tendinitis, left leg
CPT/HCPCS: 73721

== ENCOUNTER → 2023-09-08 | Outpatient (CLI) | payer MEDICAID, SELFPAY ==
--- OUTSIDE RECORDS SUMMARY | 2023-09-08 14:52 | XMS RPT_ITS | CCD ---
Author Name Unknown Address [address] [place] [address] Organization [facility] Results Test Name Value Interpretation Reference Range Facil ity Summary Purpose Family History No Family History Records Found Advance Directives No Advanced Directives Records Found Additional Source Comments INFORMATION SOURCE (unrecogn ized section and content) FOR RECORDS PERTAINING TO PATIENTS WHO ARE OR HAVE BEEN ENROLLED IN A CHEMICAL DEPENDENCY/SUBSTANCEABUSE PROGRAM, SOME INFORMATION MAY BE OMITTED. This clinical summary was aggregated from multiple sources. Caution should be exercised in using it in the provision of clinical care. This summary normalizes information from multiple sources, and as a consequence, information in this document may materially change the coding, format and clinical context of patient data. In addition, data may be omitted in some cases. CLINICAL DECISIONS SHOULD BE BASED ON THE PRIMARY CLINICAL RECORDS. [facility]. provides no warranty or guarantee of the accuracy or completeness of information in this document.
[2023-09-08 17:25] LABS: Absolute Lymphocyte Count 1.91 X10^3/uL (0.83-4.51); Absolute Neutrophil Count 4.8 X10^3/uL (2.0-7.7); Basophil# 0.04 X10^3/uL; Basophil% 0.5 % (0-1); Eosinophil# 0.11 X10^3/uL; Eosinophils% 1.5 % (0-5); Hematocrit 42.7 % (37-47); Hemoglobin 14.3 g/dL (12.0-15.0); Lymphocyte # 1.91 X10^3/ul (0.83-4.51); Lymphocyte % 25.7 % (19-41); Mean Corp Hgb Conc 33.5 g/dL (32-36); Mean Corpuscular Hgb 29.1 pg (27.0-32.0); Mean Corpuscular Volume 86.8 fL (81-99); Mean Platelet Vol. 10.7 fl (6.2-12.0); Monocyte# 0.53 X10^3/uL; Monocyte% 7.1 % (0-10); NRBC Flagged by Analyzer 0 % (0-5); Neutrophil # 4.82 X10^3/uL (2.7-7.7); Neutrophil % 64.8 % (47-70); Platelet Count 238 K/mm3 (150-450); RBC Distribution Width CV 13.3 % (11.6-14.6); RBC Distribution Width SD 42.1 fl (35.1-43.9); Red Blood Count 4.92 M/mm3 (4.2-5.4); White Blood Count 7.4 K/mm3 (4.4-11.0)
[2023-09-08 18:07] LABS: ALB/GLOB Ratio 1.1 RATIO (0.9-2.4); AST(SGOT) 30 U/L (15-37); Alanine Aminotransfer ALT/SGPT 41 U/L (13-56); Albumin, Serum 3.8 g/dL (3.2-5.0); Alkaline Phosphatase 101 U/L (45-117); Anion Gap 7 (5-15); BUN 18 mg/dL (7-18); BUN/Creat Ratio 23.1 RATIO (10-20); Calcium,Total 8.8 mg/dL (8.5-10.1); Chloride 111 mmol/L (98-107); Creatinine, Serum 0.78 mg/dL (0.55-1.02); EST Glomerular Filtration Rate 81 mL/min (>60); Est Glom Filt Rate - Afr Amer 99 mL/min (>60); Globulin 3.4 g/dL (2.2-4.2); Glucose 93 mg/dL (74-106); Protein, Total 7.2 g/dL (6.4-8.2); Sodium Level 140 mmol/L (136-145)
== END | disposition home or self-care (01) ==
LOC: BFHLAB 14:24
PROVIDERS: PCP Family Medicine; Visit Provider Family Medicine
DX: Z01.818 Encounter for other preprocedural examination (principal)
CPT/HCPCS: 36415; 80053; 85025

== ENCOUNTER 2023-09-30 11:20 | Day surgery (SDC) | payer MEDICAID, SELFPAY ==
--- NOTE | 2023-09-21 11:20 | RAD_ITS ---
INDICATION: PRE-OP EXAMINATION/TECHNIQUE: X-RAY - XR Chest 2 Views COMPARISON: None. FINDINGS: LINES/DEVICES: None. LUNGS: No consolidation, edema or effusion. No pneumothorax. MEDIASTINUM AND CARDIOVASCULAR STRUCTURES: Cardiac silhouette not enlarged. Central airways and mediastinal contour are unremarkable. BONES AND SOFT TISSUES: Unremarkable. RAD/Chest PA and Lateral IMPRESSION: No radiographic evidence of acute cardiopulmonary disease. Electronically Signed: Gilberto Bhat MD at 20:00 EST ,
[2023-09-30] VITALS (8 sets, daily range): BP systolic 125–152; BP diastolic 69–84; PULSE 50–86; RESP 16–18; TEMP 36.6–37; O2SAT 96–100; BMI 35.0
--- OUTSIDE RECORDS SUMMARY | 2023-09-30 11:42 | XMS RPT_ITS | CCD ---
Author Name Unknown Address [address] [place] [address] Organization [facility] Results Test Name Value Interpretation [...] BE BASED ON THE PRIMARY CLINICAL RECORDS. [facility] [facility]. provides no warranty or guarantee of the accuracy or completeness of information in this document.
--- NOTE | 2023-09-30 11:57 | DCINST_ITS ---
Discharge Instructions Diet Discharge Diet: No restrictions Activity Discharge Activity: May Not Drive and May Shower (Please use cast bag covering to keep dressings clean, dry, and intact to Left foot. Please remain seated on shower chair to remain compliant with non-weight bearing status) Weight Bearing Status: No weight bearing (Please remain non-weight bearing to the Left foot with assistance of crutches, walker, or knee scooter) Keep extremity elevated above heart level: Left Leg (Please elevate Left lower extremity at all times of rest for post-operative edema control) Dressing / Incision Call your doctor if you observe: Fever of 101 or Higher, Shortness of breath, Chest pain, Calf discomfort and Uncontrolled pain Change Dressing in: do not change dressing (Physician will change dressing at first post-operative appointment) Remove Dressing in: leave in place till F/U (Do not remove. Physician will change dressing at first post op appointment. Keep clean, dry, and intact.) Cleanse incision/area with: Do not get Incision Wet and Keep Dressing Clean & Dry (Keep dressings clean, dry, and intact to the Left foot/Leg) Follow Up Care Please Follow Up With: Zechariah Chacon DPM When: Patient has first post-operative appointment in office with me early next week Test Results: Test results from this visit will be discussed in further detail at your follow- up appointment, if applicable. Discharge Plan Admission Attending Provider: Zechariah Chacon Primary Care Provider: Jerica Fisher Discharge Orders/Prescriptions Prescriptions: New doxycycline hyclate 100 mg capsule 100 mg PO DAILY Qty: 10 0RF aspirin 325 mg tablet 325 mg PO DAILY Qty: 20 0RF oxycodone-acetaminophen 5-325 mg tablet 1 tab PO Q8H PRN (Reason: pain) 7 Days Qty: 28 0RF No Action aspirin 81 MG tablet,chewable 81 mg PO DAILY Patient Comments: PT TO STOP 09/23/2023 albuterol sulfate 1 PUFF inhaler 1 puff INHALATION Q6H PRN PRN (Reason: Sob &/Or Wheezing) Referrals / Follow Up: Jerica Fisher MD [Primary Care Provider] - Disposition Disposition (needs filled in before D/C Order can be placed): Home, Self Care
[2023-09-30] MEDS: Lactated Ringers 1,000 ML 15 ML IV (12:00)
[2023-09-30] MEDS: Clindamycin 900 MG/50 ML BAG 75 MG IV (14:16)
[2023-09-30] MEDS: Bupivacaine Mpf 0.5% 30 ML VIAL (14:35)
[2023-09-30] MEDS: dexAMETHasone 4 MG/ML Vial (15:00)
--- NOTE | 2023-09-30 15:45 | RAD_ITS ---
STUDY: X-RAY - LEFT ANKLE REASON FOR EXAM: Female, 53 years old. Post op Debridement of Achilles Tendon (PACU) TECHNIQUE: 3 view(s) of the ankle. COMPARISON: None. FINDINGS: Normal visualized distal tibia and fibula. Normal medial and lateral malleoli. Normal tibiotalar articulation and ankle mortise. Normal visualized talus and calcaneus. The visualized subtalar, talonavicular, calcaneocuboid and tarsal articulations are normal. The soft tissue structures are unremarkable. RAD/Ankle min 3 Views IMPRESSION: No evidence of acute osseous abnormality. No evidence of underlying subcutaneous emphysema. Electronically Signed: Cristobal Beaver DO at 16:05 EST ,
--- NOTE | 2023-09-30 15:52 | OP.PCM_ITS ---
Problems Associated Problem List Diagnoses (1) Achilles tendinitis, left leg: (2) Achilles tendonosis of left lower extremity: (3) Equinus deformity of left foot: (4) Pain in left foot: Report of Operation Date of Procedure: 09/30/23 Pre-Operative Diagnosis: 1. Achilles tendinitis/tendinosis left foot 2. Pain left foot Post-Operative Diagnosis: 1. Achilles tendinitis/tendinosis left foot 2. Pain left foot Surgery/Procedure Performed:: 1. Tendo Achilles lengthening left foot 2. Debridement of Achilles tendinosis left foot 3. Application of amniotic graft left foot 4. Corticosteroid injection left foot Description of Surgical Findings:: See operative note for findings Surgeon: Zechariah Chacon information strategist: Pernell Lees DPM PGY-2 Type of Anesthesia: General and Local (10cc one-to-one mixture 1% lidocaine plain and 0.5% Marcaine plain) Specimen's removed: None Drains: None Estimated Blood Loss (mL): < 2mL Description of Procedure: HPI/indication: Patient is a 53-year-old female who presented to office with Achilles tendinitis/tendinosis of the left foot. She had previously attempted supportive shoe gear; power step inserts, but does ambulate in flip-flops at times; icing; oral anti-inflammatory medication; CAM boot immobilization; oral steroid course; heel lifts; physical therapy; home stretching program and eccentric exercises. She reports failing all of these modifications and states stretching is not working. She does have history of DVT which was ruled out with venous duplex ultrasound. MRI was performed in June 2023 demonstrating fusiform thickening/tendinosis of the Achilles tendon with increased intrasubstance signal, located between 2 to 7 cm above the distal insertion, measuring up to 1.6 cm in greatest AP thickness. There is no Achilles tendon tear or rupture. Patient had has continued pain despite no tearing or rupture and despite previous interventions. Patient would like to proceed with surgical intervention. Discussed with patient debridement to debulk and lengthen the tendon may not provide sufficient relief of symptoms. Patient still would like to proceed forward with intervention as pain is affecting work and home life. Discussed procedure in great detail. Reviewed rationale with patient in detail. Discussed all possible risk versus benefits of the procedure. Discussed risks include but are not limited to the following: Pain, continued pain, complex regional pain syndrome, deformity, continue deformity, recurrence, overcorrection, under correction, numbness/neuritis, swelling, scarring, poor cosmetic result, bleeding, hardware failure, symptomatic hardware, the need for further surgery/procedures, fracture, nonunion, delayed union, nonhealing/delayed healing, dehiscence, infection, blood clots, allergic reaction, transfer lesions, postoperative arthritis, weakness, shoe gear problems/irritation, inability to walk, inability to wear shoes, heart attack, stroke, addiction to pain medication, loss of function, loss of limb, loss of life. Patient was able to repeat these back and voices understanding of these. Typical postoperative course was reviewed with patient in detail. Patient expressed understanding and agreement with these. Consent forms were signed freely. No guarantees were given. No promises were made. She was cleared for surgery by her PCP. All diagnostic data was reviewed prior to surgery. Operative limb was signed prior to entering the OR. She was scheduled for debridement of the Achilles tendon with tendo Achilles lengthening of the left foot at [facility] on 09/30/2023. Procedure: Under mild sedation patient was brought in the operating room. Following induction of general anesthesia she was transferred to the operative table in the prone position. She was secured to the table with a safety belt with all bony prominences well-padded/offloaded. A pneumatic thigh tourniquet was placed about the patient's left thigh. The left leg was then scrubbed, prepped, and draped in the usual aseptic manner. The left leg was then exsanguinated utilizing an Esmarch bandage and the pneumatic thigh tourniquet was inflated to 300 mmHg. The foot was dorsiflexed with the knee extended achieving 2 degrees of dorsiflexion, the knee was then flexed and the foot was again dorsiflexed achieving 5 degrees of dorsiflexion prior to incision. At this time attention was directed to the posterior aspect of the left leg where a visible palpable fusiform thickening of the Achilles tendon is noted 2 to 7 cm proximal to the insertion site into the calcaneus. A linear incision was made midline overlying the Achilles tendon and extended distally with slight curvature medially along the calcaneus utilizing a #15 blade. Incision was deepened through sharp and blunt dissection. Care was taken to identify and retract all vital neurovascular structures. Peritenon of the Achilles tendon was identified and tagged medial and lateral with a 4-0 Vicryl. The peritenon was then incised linearly with #15 blade. The Achilles tendon was then visualized at the operative field and noted to be thickened and slightly discolored due to inflammatory changes. The peritenon was then inspected with no evidence of thickening or inflammatory changes. Next, all hard palpable sections of the Achilles tendon were debrided/debulked to healthy viable appearing tendon utilizing a #15 blade. At this time the Achilles tendon is noted to be debrided of all nonviable, hard, thickened sections of the tendon to healthy viable tendon. Next, a tendo Achilles lengthening procedure was performed and the foot was slightly dorsiflexed and noted to have increased dorsiflexion with equinus contracture reduced achieving 9 degrees of dorsiflexion with the knee extended and 12 degrees of dorsiflexion with the knee flexed. Site was then flushed with copious amounts of normal sterile saline. Sections of the tendon were repaired with a 4-0 Vicryl. The Achilles tendon was not detached during the tendo Achilles lengthening or debulking of the Achilles tendon. Insertion site was noted to be healthy appearing with no palpable thickening or Meng deformity. An Arthrex amniotic matrix graft was applied to the Achilles tendon and the peritenon was closed over the Achilles tendon utilizing 4-0 Vicryl. Next, a corticosteroid injection was performed about the Achilles tendon and peritenon consisting of 1 cc 4 mg Decadron. The deep tissues were then reapproximated with 4-0 Vicryl. The subcutaneous tissues were then reapproximated with a 4-0 Monocryl. At this time the pneumatic thigh tourniquet was deflated and a prompt hyperemic response was noted to the digits of the left foot. The skin was then reapproximated utilizing a 3-0 Prolene in simple interrupted fashion. Incision site was dressed with Betadine soaked Adaptic, 4 x 4 gauze, Kerlix, Webril cast padding, 4 inch Ko wrap, 6 inch Ko wrap. A well molded posterior splint was then applied to the left foot and anchored with a 4 inch Ko wrap and 6 inch Ko wrap and modified Chappell compression fashion. The patient tolerated the procedure and anesthesia well and was transferred to PACU with vital signs stable and vascular status intact to the left foot. Postoperative discharge instructions outlining her care were given to patient and discussed with family. She is to remain nonweightbearing to the left lower extremity with assistance of crutches/walker/knee scooter. She is to continue to elevate left lower extremity at all times of rest for postoperative edema control. She is to keep dressings clean, dry, and intact to the left foot and utilize cast bag when showering seated on shower chair to remain compliant with nonweightbearing status. Patient has first postoperative appointment with me in office early next week for continued postoperative care. Grafts/Implants Used: Arthrex amnion matrix Achilles tendon left foot Complications None Admit VTE Documentation VTE Present on Admission: No VTE Mechan Device Prophylaxis: SCD's VTE Pharm Prophylaxis ordered?: No Reason prophylaxis not ordered:: Procedure Not Indicated
[2023-09-30] MEDS: Oxycodone/Apap 5/325 Tablet PO (16:43)
== END 2023-09-30 17:20 | disposition home or self-care (01) ==
LOC: SDC 11:22 → AC 11:24
PROVIDERS: PCP Family Medicine; Referring Provider Student in an Organized Health Care Education/Training Program; Visit Provider Student in an Organized Health Care Education/Training Program
PROC: (CPT 27650; principal; 2023-09-30 12:45)
DX: M76.62 Achilles tendinitis, left leg (principal); D68.2 Hereditary deficiency of other clotting factors; M21.6X2 Other acquired deformities of left foot; J45.909 Unspecified asthma, uncomplicated; M16.11 Unilateral primary osteoarthritis, right hip; I10 Essential (primary) hypertension; Z87.891 Personal history of nicotine dependence
CPT/HCPCS: 27685; 27654; 01470; 71046; 73610; J7120; J2405

== ENCOUNTER 2023-11-21 09:46 | Outpatient (RCR) | payer MEDICAID, SELFPAY ==
--- NOTE | 2023-11-21 10:53 | HP.PTEVAL ---
Patient's Visit Information Visit Information Visit Information: JADEN ARSMTRONG is a 53 year old F referred to Physical Therapy by Dr. Zechariah Chacon DPM with a diagnosis of Achilles lengthening and debridement 09-30-23. Date of Evaluation: 11/21/23 Physical Therapist: LEE Colón Visit Plan Frequency: 2x /Week Duration: 4 Weeks Plan: 2x/ WEEK FOR 4 WEEKS for L ankle stretching, strengthening, gait training, balance and HEP HEP: orange 4 way ankle band and standing heel and toe raises. Discussed and talked pt through walking with equal stance time on B LE's Subjective Subjective: Pt had L foot surgery on the Sep 30 (debridement and Achilles lengthening) and then was put in a walking boot. She got out of that last week. She feels she is walking ok with just slight tenderness and same thing on the stairs. She is sleeping good. said that he gave her 4 degrees of DF and she wants us to measure it today. She is not sure she needs PT. Objective Objective: Gait: Walks with decrease stance time on the L LE. Pt is not able to walk on her toes and heels on the L Pt is able to heel and toe raise holding onto the wall about 50% normal ROM L ankle AROM: DF 10, PF 30, INV 22 and EV 12 L ankle strength: DF 8.1 and PF 13.8 and INV 8.4 and EV 7.1 R ankle AROM: 20 D and PF 40 and INV 23 and EV 15 R ankle strength DF 14, PF 16.8, INV 9.8 and EV 9.4 SLB L 3 seconds Swelling remains on the L LE but told pt that would be there for awhile Balance/Special Test Scores Lower Extremity Functional Score: 67 Goals Goal 1:: I HEP Goal Time Frame: 4-6 Weeks Goal 2:: Increase L ankle strength (at eval: L ankle strength: DF 8.1 and PF 13.8 and INV 8.4 and EV 7.1) Goal Time Frame: 4-6 Weeks Goal 3:: Be able to walk with equal stance time on B LE's Goal Time Frame: 4-6 Weeks Goal 4:: Increase L ankle AROM: (at eval: L ankle AROM: DF 10, PF 30, INV 22 and EV 12) Rehabilitation Potential Rehabilitation Potential: Good Anticipated Interventions Patient/Client Instruction: Educate patient on: Condition and Plan of Care For the Purpose of:: To decrease pain, To decrease swelling/inflammation, To increase ROM, To improve nutrient delivery to tissue, To improve muscle performance and motor function, To improve ability to perform ADL's, To increase tolerance to activity/condition/position, To improve performance and independence with ADL's, To improve gait and locomotor functions, To improve health of tissue, To decrease soft tissue restriction and To increase flexibility/ROM Therapeutic Exercise to Include: Strength training, Balance training, Flexibilty training, Gait and locomotor training, Neuromotor development and Active ROM For the Purpose of:: To decrease pain, To increase ROM, To improve nutrient delivery to tissue, To improve muscle performance and motor function, To improve ability to perform ADL's, To improve performance and independence with ADL's, To decrease level of supervision to perform tasks, To improve ability of physical actions for home/community/work/leisure, To improve gait and locomotor functions, To improve health of tissue, To decrease soft tissue restriction and To increase flexibility/ROM Functional Training to Include: Gait training For the Purpose of:: To improve gait and locomotor functions Manual Therapy Techniques to Include: Passive ROM For the Purpose of:: To increase ROM Text: Thank you for the opportunity to evaluate your patient. For Medicare and Medicare HMO plans, please review the plan of care and approve it. It will need to be FAXED BACK to us at [phone] for Medicare purposes. For Medicare only, by signing this I certify the plan of care. Please let me know if there are questions or concerns regarding this plan of care. Physician Signature: Date:
--- NOTE | 2024-03-23 13:21 | HP.PT.NRP ---
Patient Information Patient Information: JADEN ARMSTRONG was seen in my office for initial evaluation on 11/21/23. The following Plan of Care was established for this patient: POC Established Initial Frequency: 2x /Week Initial Duration: 4 Weeks Anticipated Interventions Patient/Client Instruction: Educate patient on: Condition and Plan of Care For the Purpose of:: To decrease pain, To decrease swelling/inflammation, To increase ROM, To improve nutrient delivery to tissue, To improve muscle performance and motor function, To improve ability to perform ADL's, To increase tolerance to activity/condition/position, To improve performance and independence with ADL's, To improve gait and locomotor functions, To improve health of tissue, To decrease soft tissue restriction and To increase flexibility/ROM Therapeutic Exercise to Include: Strength training, Balance training, Flexibilty training, Gait and locomotor training, Neuromotor development and Active ROM For the Purpose of:: To decrease pain, To increase ROM, To improve nutrient delivery to tissue, To improve muscle performance and motor function, To improve ability to perform ADL's, To improve performance and independence with ADL's, To decrease level of supervision to perform tasks, To improve ability of physical actions for home/community/work/leisure, To improve gait and locomotor functions, To improve health of tissue, To decrease soft tissue restriction and To increase flexibility/ROM Functional Training to Include: Gait training For the Purpose of:: To improve gait and locomotor functions Manual Therapy Techniques to Include: Passive ROM For the Purpose of:: To increase ROM Last Seen Last Seen: This patient was last seen in our office 11/21/23. Pertinent comments regarding their Physical therapy will appear below: SPE[facility] PT At this point I will be discontinuing this patient from physical therapy. I would be happy to see this patient again in the future if found appropriate by the physician. Thank you! Agueda Prather, LEE Balance/Gait/Functional tests Balance/Special Test Scores Lower Extremity Functional Score: 67
== END 2023-11-21 19:00 | disposition home or self-care (01) ==
LOC: PT 09:46
PROVIDERS: PCP Family Medicine; Referring Provider Student in an Organized Health Care Education/Training Program; Visit Provider Student in an Organized Health Care Education/Training Program
DX: M76.62 Achilles tendinitis, left leg (principal); Z98.890 Other specified postprocedural states
CPT/HCPCS: 97161

== ENCOUNTER → 2024-05-03 | Outpatient (CLI) | payer MEDICAID, SELFPAY ==
[2024-05-03 11:57] LABS: Absolute Lymphocyte Count 1.79 X10^3/uL (0.83-4.51); Basophil# 0.04 X10^3/uL; Basophil% 0.5 % (0-1); Eosinophils% 1.3 % (0-5); Hematocrit 45.2 % (37-47); Hemoglobin 14.6 g/dL (12.0-15.0); Lymphocyte # 1.79 X10^3/ul (0.83-4.51); Lymphocyte % 23.8 % (19-41); Mean Corp Hgb Conc 32.3 g/dL (32-36); Mean Corpuscular Hgb 27.9 pg (27.0-32.0); Mean Corpuscular Volume 86.3 fL (81-99); Mean Platelet Vol. 10.7 fl (6.2-12.0); Monocyte# 0.63 X10^3/uL; Monocyte% 8.4 % (0-10); NRBC Flagged by Analyzer 0 % (0-5); Neutrophil # 4.96 X10^3/uL (2.7-7.7); Neutrophil % 65.9 % (47-70); Platelet Count 281 K/mm3 (150-450); RBC Distribution Width CV 13.9 % (11.6-14.6); RBC Distribution Width SD 44.4 fl (35.1-43.9); Red Blood Count 5.24 M/mm3 (4.2-5.4); White Blood Count 7.5 K/mm3 (4.4-11.0)
[2024-05-03 12:42] LABS: ALB/GLOB Ratio 1.1 RATIO (0.9-2.4); AST(SGOT) 41 U/L (15-37); Alanine Aminotransfer ALT/SGPT 53 U/L (13-56); Albumin, Serum 3.9 g/dL (3.2-5.0); Alkaline Phosphatase 126 U/L (45-117); Anion Gap 7 (5-15); BUN 12 mg/dL (7-18); BUN/Creat Ratio 14.6 RATIO (10-20); Calcium,Total 9.5 mg/dL (8.5-10.1); Chloride 109 mmol/L (98-107); Cholesterol 193 mg/dL (200); Creatinine, Serum 0.82 mg/dL (0.55-1.02); EST Glomerular Filtration Rate 77 mL/min (>60); Est Glom Filt Rate - Afr Amer 93 mL/min (>60); Globulin 3.7 g/dL (2.2-4.2); Glucose 105 mg/dL (74-106); High Density Lipoprotein 52 mg/dL; Potassium 3.9 mmol/L (3.5-5.1); Protein, Total 7.6 g/dL (6.4-8.2); Sodium Level 139 mmol/L (136-145); Triglycerides 166 mg/dL; Very Low Density Lipoprotein 33 mg/dL (5-40)
== END | disposition home or self-care (01) ==
LOC: MTLAB 10:45
PROVIDERS: PCP Family Medicine; Referring Provider Family Medicine; Visit Provider Family Medicine
DX: Z00.00 Encounter for general adult medical examination without abnormal findings (principal); D68.51 Activated protein C resistance; E78.5 Hyperlipidemia, unspecified
CPT/HCPCS: 36415; 80053; 80061; 85025

== ENCOUNTER → 2024-05-04 | Outpatient (CLI) | payer MEDICAID, SELFPAY ==
--- NOTE | 2024-05-04 08:59 | BI_ITS ---
MAMMOGRAPHY - BILATERAL SCREENING REASON FOR EXAM: Female, 54 years old. Routine annual screening examination. PERTINENT HISTORY: Grandmother with breast cancer. Prior left breast biopsy. TECHNIQUE: Digital bilateral breast alize (3D mammographic acquisition) in the CC and MLO projections. 2-D mediolateral oblique (MLO) and craniocaudad (CC) views of both breasts were obtained. CAD: Full Field Digital Mammography with Computer Added Detection was performed. COMPARISON: Comparison is made with prior study April 21, 2023 and July 21, 2021. FINDINGS: Breast Composition: The breasts are heterogeneously dense, which may obscure small masses. There are no dominant masses or suspicious calcifications. Stable bilateral fat containing axillary lymph nodes. No other significant abnormalities are identified. There has been no significant change since the prior study. BI/SCRN MAMM (CAD)W/ALIZE BILAT IMPRESSION: Stable bilateral screening mammogram. Yearly follow-up mammogram recommended. (A) ASSESSMENT CATEGORY: BIRADS Category 2: Benign. A letter regarding these results will be sent to the patient by the facility within 30 days. Approximately 10% of breast cancers are not detected by mammography. A normal mammogram should not delay biopsy of a clinically suspicious abnormality. [id number] Electronically Signed: Delmer Miller MD at 10:25 EDT ,
== END | disposition home or self-care (01) ==
LOC: OPBI 08:57
PROVIDERS: PCP Family Medicine; Referring Provider Family Medicine; Visit Provider Family Medicine
DX: Z12.31 Encounter for screening mammogram for malignant neoplasm of breast (principal)
CPT/HCPCS: 77063; 77067

== ENCOUNTER → 2025-05-08 | Outpatient (CLI) | payer MEDICAID, SELFPAY ==
--- NOTE | 2025-05-08 07:55 | BI_ITS ---
EXAM: SCRN MAMM (CAD)W/ALIZE BILAT DATE: 05/08/2025 CLINICAL HISTORY: F, Age 55 y/o , SCREENING Grandmother with breast cancer. History of prior left breast biopsy. TECHNIQUE: SCRN MAMM (CAD)W/ALIZE BILAT COMPARISON: Prior exam(s) dated May 04, 2024.. FINDINGS: TISSUE DENSITY: The breasts are heterogeneously dense, which may obscure small masses. Bilateral Breast Mammographic Findings: No significant masses, calcifications or other abnormalities are identified. Stable small benign-appearing bilateral axillary lymph nodes. No suspicious masses, areas of developing architectural distortion, or suspicious calcifications. There has been no significant interval change. BI/SCRN MAMM (CAD)W/ALIZE BILAT IMPRESSION: Stable examination. OVERALL FINAL ASSESSMENT BI-RADS 2: BENIGN RECOMMENDATION: Routine annual follow-up in 1 Year A letter with findings and recommendations will be mailed to the patient. Reading Location: [facility]
== END | disposition home or self-care (01) ==
LOC: OPBI 07:53
PROVIDERS: PCP Family Medicine; Referring Provider Family Medicine; Visit Provider Family Medicine
DX: Z12.31 Encounter for screening mammogram for malignant neoplasm of breast (principal)
CPT/HCPCS: 77063; 77067

== ENCOUNTER → 2025-05-17 | Outpatient (CLI) | payer MEDICAID, SELFPAY ==
[2025-05-17 13:00] LABS: Hematocrit 44.1 % (37-47); Hemoglobin 14.9 g/dL (12.0-15.0); Immature Granulocytes Count 0.020 X10^3/uL (0.0-0.0); Mean Corp Hgb Conc 33.8 g/dL (32-36); Mean Corpuscular Volume 85.0 fL (81-99); Mean Platelet Vol. 10.4 fl (6.2-12.0); NRBC Flagged by Analyzer 0 % (0-5); Platelet Count 267 K/mm3 (150-450); RBC Distribution Width CV 13.1 % (11.6-14.6); RBC Distribution Width SD 40.8 fl (35.1-43.9); Red Blood Count 5.19 M/mm3 (4.2-5.4); White Blood Count 6.7 K/mm3 (4.4-11.0)
[2025-05-17 13:22] LABS: AST(SGOT) 32 U/L (<=31); Alanine Aminotransfer ALT/SGPT 34 U/L (<=34); Albumin, Serum 4.4 g/dL (3.5-5.0); Alkaline Phosphatase 120 U/L (35-104); Anion Gap 13 (5-15); BUN 13 mg/dL (4-19); BUN/Creat Ratio 16.7 RATIO (10-20); Calcium,Total 9.5 mg/dL (7.6-11.0); Carbon Dioxide 19.0 mmol/L (21.0-32.0); Chloride 108 mmol/L (98-108); Cholesterol 197 mg/dL (<=200); Globulin 2.9 g/dL (2.2-4.2); Glucose 105 mg/dL (70-99); Low Density Lipoprotein Calc. 102 mg/dL; Potassium 3.9 mmol/L (3.3-5.1); Triglycerides 241 mg/dL; Very Low Density Lipoprotein 48 mg/dL (5-40); cholesterol:hdl ratio screen 4.19
== END | disposition home or self-care (01) ==
LOC: BFHLAB 10:33
PROVIDERS: PCP Family Medicine; Visit Provider Family Medicine
DX: Z00.00 Encounter for general adult medical examination without abnormal findings (principal); D68.51 Activated protein C resistance; E78.5 Hyperlipidemia, unspecified
CPT/HCPCS: 36415; 80053; 80061; 85025

== ENCOUNTER 2025-06-17 08:00 | Outpatient (RCR) | payer MEDICAID, SELFPAY ==
--- NOTE | 2025-05-27 08:04 | HP.PTEVAL ---
Patient's Visit Information Visit Information Visit Information: JADEN ARMSTRONG is a 55 year old F referred to Physical Therapy by Dr. Jerica Fisher MD with a diagnosis of R hip pain. Date of Evaluation: 05/27/25 Physical Therapist: Ravindra Torre, DPT, OCS, CSCS Visit Plan Frequency: 2x /Week Duration: 4-6 Weeks Plan: 2x/week for 4-6 week for aquatic therapy: IE HEP keep it moving , bike 5 min 5x/day stationary. avoid aggravating activities treat with R hip ROM, traction, strength of B LE specially r hip and general body eexercises. Progress to I pool or HEP Subjective Subjective: R hip pain chronic. Saw [facility] a while ago and needed JADEN but had to take care of foot first. X rays have shown lots of degeneration. pain is 6-9/10 constant and has been for months. Sleep is poor due to hip pain at 3 hrs at a times. Unable to work du to pain. Does what she needs to at home but cannot mow anymore and has 5 acres to take care of. has two dogs that shee hob bles around with. Lives with ex and takes care of him. Has steps which shee does safely. Pain R hip: Pain Intensity (Out of 10): 6 Pain Intensity Range: 6 and 9 Objective Objective: R antalgia into PT, hard to exit chair due to R hip pain and stiffness. steps are reciprocal but antalgic on R. I with gait but slow and avoids R hip extension. R hip ROM: 0 ir, 30 er, 90 flexxion all with pain, 0 ext. L hip is 50 ER, 15 IR, 105 flexion and 5 ext : no pain. Knee and ankle aROM WFL. reflexes 2/3 patella adn achilles B. Sensation B LE WNL to gross light touch. + PUMA and FADDIR adn scour on R. strength is 3/5 R hip abd and ext and flexion vs 4- on L. knee xt 3+ R and 4 L, HSC 4 B. ankles WFL B strngth. Balance/Special Test Scores Lower Extremity Functional Score: 25 Goals Goal 1:: patient exit chair without pain or hesitation Goal Time Frame: 4-6 Weeks Goal 2:: Walk without antalgia R hip Goal Time Frame: 4-6 Weeks Goal 3:: I appropriate mgmt of R hip degeneration to minimize pain Goal Time Frame: 4-6 Weeks Goal 4:: LEFS score 40 Goal Time Frame: 4-6 Weeks Rehabilitation Potential Physical Therapy Diagnosis: Degenerative pain in R hip limiting funciton and QOL greatly. Rehabilitation Potential: Questionable Anticipated Interventions Patient/Client Instruction: Educate patient on: Condition and Plan of Care For the Purpose of:: To decrease pain, To increase ROM, To improve muscle performance and motor function, To improve ability of physical actions for home/community/work/leisure and To improve gait and locomotor functions Therapeutic Exercise to Include: Strength training, Flexibilty training, Relaxation training, In an aquatic setting, Passive ROM and Active ROM For the Purpose of:: To decrease pain, To increase ROM, To improve nutrient delivery to tissue, To increase tolerance to activity/condition/position, To improve ability of physical actions for home/community/work/leisure and To improve gait and locomotor functions Text: Thank you for the opportunity to evaluate your patient. For Medicare and Medicare HMO plans, please review the plan of care and approve it. It will need to be FAXED BACK to us at [phone] for Medicare purposes. For Medicare only, by signing this I certify the plan of care. Please let me know if there are questions or concerns regarding this plan of care. Physician Signature: Date:
--- NOTE | 2025-06-17 08:16 | HP.PTDCSUM ---
Discharge Summary D/C summary: It has been my pleasure to treat JADEN ARMSTRONG referred by Dr. Jerica Fisher MD, with the diagnosis of R hip pain for a total of 8 visit(s). Discharge Date: 06/17/25 Please see the following information for a summary of their discharge status. Subjective Subjective: Hip still hurting, 10 on Tuesday walking at [employer]. Was doing better until last Tuesdays workout then a little worse. More groin pain sinc then. Was improved with sleeping 6 hrs prior to that. Doing stretchs at home. Still limping. Will continue via HEP. may continue at [facility] and knows what to do there. Hard to sit to make crafts. Pain R hip: Pain Intensity (Out of 10): 7 Overall Improvement % Improvement: 33 Objective Objective/Function: Moving very poorly , Obvious R antalgia in gait, avoids R hip ext. hard time getting out of cahir 3x/today with pain. Frustrated with lack of good improvement but did get better. not enough to make a big differenc ein her life though. Hip ROm still limited and painful on R. Goals Goal 1:: patient exit chair without pain or hesitation Goal Progress: Not Progressing Goal 2:: Walk without antalgia R hip Goal Progress: Not Progressing Goal 3:: I appropriate mgmt of R hip degeneration to minimize pain Goal Progress: not helping Goal 4:: LEFS score 40 Goal Progress: Not Progressing Plan Plan: d/c, pt to continue in pool at [facility] as able, continue with HEP, and pursue next step with doctor. D/C Information Discharge Comments: Pt to continuee in [facility] I as able and with HEP, contact doctor regarding next appropriate step as this is really effecting her lifestyle adnx has for years now d/c sentence: If there are questions or concerns regarding this patient's physical therapy, please feel free to call me at [phone]. Thank you for the referral of this patient. Sincerely, Ravindra Torre, DPT, OCS, CSCS Balance/Gait/Functional tests Balance/Special Test Scores Lower Extremity Functional Score: 23 Improvement % Improvement: 33
== END 2025-06-17 19:00 | disposition home or self-care (01) ==
LOC: PT 08:00
PROVIDERS: PCP Family Medicine; Referring Provider Family Medicine; Visit Provider Family Medicine
DX: M25.551 Pain in right hip (principal)
CPT/HCPCS: 97113; 97161; 97164